=== PATIENT | male | born 1960 | race Caucasian/White ===

== ENCOUNTER 2024-09-16 09:11 | Outpatient (CLI) | payer BC, SELFPAY ==
--- NOTE | ~2024-09-16 | MR_ITS ---
MRI of the right shoulder Technique: Axial proton-density fat-sat images, coronal proton density fat-sat and T2 fat-sat images, and sagittal T1-weighted and T2 fat-sat images were acquired. Clinical History: Pain Findings: There is severe AC joint degenerative change with extensive bony productive change of the d istal clavicle and acromion. Coracoclavicular, coracoacromial, and coracohumeral ligaments are intact . There is 1.6 x 1.9 cm area of full-thickness tearing at the distal supraspinatus tendon insertion at the anterior mid portions. There is background moderate to advanced tendinosis of the supraspinatus t endon. There is mild to moderate infraspinatus tendinosis without definite partial or full-thickness tear. Subscapularis tendon is intact with mild tendinosis. Tendon of long head of the biceps is intac t. No labral tear evident. Inferior glenohumeral ligament is intact. There is mild chondromalacia of the glenohumeral joint. No muscle atrophy or edema. Impression: 1.6 x 1.9 cm full-thickness tear at the distal supraspinatus tendon insertion. Background rotator cuff tendinosis. Severe AC joint degenerative change. Reviewed, dictated and finalized at location . Impression: 1.6 x 1.9 cm full-thickness tear at the distal supraspinatus tendon insertion. Background rotator cuff tendinosis. Severe AC joint degenerative change.
== END 2024-09-16 09:12 | disposition home or self-care (01) ==
PROVIDERS: PCP Orthopaedic Surgery; Visit Provider Orthopaedic Surgery
DX: M75.81 Other shoulder lesions, right shoulder (principal); M19.011 Primary osteoarthritis, right shoulder
CPT/HCPCS: 73221

== ENCOUNTER 2024-10-06 01:24 | Day surgery (SDC) | payer BC, SELFPAY ==
[2024-09-22 14:39] VITALS: BMI 20.9
--- NOTE | 2024-09-22 14:55 | PC.NURSE ---
Report to the Outpatient Waiting Room, entrance under the green pavilion located off [facility], at time _0700am on date __10/06/24 . Planned Procedure Time: 0900am .? Time changes happen often and if your time is changed the preop area will call you the afternoon before. - You and your visitor will be asked to self-screen and do not enter if you have any COVID symptoms. Please call surgeon if you need to reschedule. - A mask is optional within the hospital at this time. Patients may have clear liquids (water, carbonated beverages, clear teas, apple juice) until 3 hours prior to surgery with a maximum of 20 ounces. - No food from midnight until time of surgery and no smoking, or chewing tobacco (or any form of nicotine). No chewing gum, candy or mints. (0600am) Take only the following medications with a SIP of water on the morning of surgery: ___Inhalers and Alprazolam if needed DO NOT STOP ANY OF YOUR OTHER PRESCRIPTION MEDICATIONS PRIOR TO SURGERY EXCEPT THE FOLLOWING Hold all vitamins and supplements for 3 days per anesthesiologist.Date to take last dose_ 10/02/24 Medications to discontinue per physician _HOLD Aspirin and Xarelto for [address] Grant Date to take last dose_09/30/24 Please no make-up, nail mosotho, hairspray, perfume, deodorant, or body powder the day of surgery.? No jewelry (including any body piercings) or valuables the day of surgery, leave them at home.? Please take a shower or bath the night before, or the morning of, surgery with an antibacterial soap.? Wear comfortable, loose fitting clothing.? - Jewelry must be removed prior to entering the operating room.? Rings and piercings that are not removed may be cut off. - The hospital will not accept responsibility for valuables.? - Please leave all valuables, including medications, at home the day of surgery. If you are going home after surgery, a licensed hammer driver must drive you home.? - NO public transportation without another adult if you receive anesthesia. - We recommend that an adult stay with you for 24 hours following discharge. - We also recommend that you do not drive, make important decision, drink alcoholic beverages, or take any drugs that were not prescribed by your health care provider for at least 24 hours after your discharge time. Follow any additional instructions given to you from your surgeon. Telephone instructions given to _Patient and asked if any additional questions and then verbalized understanding. Patient advised to call surgeon office or pre surgery nurse liaison [phone] if any additional questions.
--- NOTE | 2024-10-02 07:29 | P.HP_ITS ---
H&P: HPI History of Present Illness Date/Time: 10/02/24 07:29 Chief Complaint: Patient has shoulder pain right. He has weakness and difficulty raising his arm. He has failed conservative treatment like to consider surgical repair. Review of Systems Musculoskeletal: Musculoskeletal: Reports arthralgias, Reports joint swelling and Reports stiffness PMFSH Surgical History Surgical History History of neck surgery History of elbow surgery rt History of prostate surgery prostrate removed History of ankle surgery rt Family History Family History Mother Cerebrovascular accident Social History Social History Smoking status: Never smoker Alcohol intake: never Substance use: never Do You Feel Safe in your Home?: Yes Lack of Transportation: No Lack of Food: Never True Current Housing: I Have Housing Concerned About Future Housing: No Difficulty Paying Gas/Electric Bills: No Difficulty Paying for Meds: No Currently Unemployed: No Education: Trade/Vocational Certificate Difficulty w/ Childcare or Family Care: No Living arrangements: with family Additional living arrangements comments: Daughter Spiritual care concerns: No Meds Home Medications and Allergies Home Medications ?Medication ?Instructions ?Recorded ?Confirmed ?Type albuterol sulfate 90 mcg/actuation 1 puff inhalation Q4H PRN 07/22/24 09/22/24 History aerosol inhaler (Ventolin HFA) shortness of breath or wheezing alprazolam 0.5 mg tablet 0.5 mg PO DAILY 07/22/24 09/22/24 History aspirin 81 mg tablet,delayed 81 mg PO DAILY 07/22/24 09/22/24 History release atorvastatin 40 mg tablet (Lipitor) 40 mg PO DAILY 07/22/24 09/22/24 History budesonide 160 mcg-glycopyr 9 2 inh inhalation BID 07/22/24 09/22/24 History mcg-formot 4.8 mcg/actuation HFA inhaler (Breztri Aerosphere) empagliflozin 10 mg tablet 10 mg PO DAILY 07/22/24 09/22/24 History (Jardiance) ezetimibe 10 mg tablet 10 mg PO DAILY 07/22/24 09/22/24 History ferrous sulfate 325 mg (65 mg 325 mg PO DAILY 07/22/24 09/22/24 History iron) tablet levothyroxine 25 mcg capsule 25 mcg PO DAILY 07/22/24 09/22/24 History mecobalamin (vitamin B12) 1,000 1,000 mcg PO DAILY 07/22/24 09/22/24 History mcg lozenges montelukast 10 mg tablet 10 mg PO DAILY 07/22/24 09/22/24 History (Singulair) omeprazole 20 mg capsule,delayed 20 mg PO DAILY 07/22/24 09/22/24 History release rivaroxaban 2.5 mg tablet (Xarelto) 2.5 mg PO BID 07/22/24 09/22/24 History fluticasone propionate 50 1 spray intranasal DAILY 09/18/24 09/22/24 History mcg/actuation nasal spray,suspension (Allergy Relief (fluticasone)) Allergies Allergy/AdvReac Type Severity Reaction Status Date / Time No Known Allergies Allergy Verified 09/22/24 14:32 Exam Narrative: Patient has pain and impingement with right shoulder activity. He is weak in abduction external rotation is give-way. Neurologically is grossly intact. No significant radicular symptoms are noted. Neurologically appears to be intact. Eyes: General: appearance normal, both eyes and all related structures Neck: Neck: supple Cardio: Rate: regular rate Rhythm: regular rhythm Radiology Reports: Comments: Magnetic Resonance Report Signed Patient: Arslan Castellano MRI of the right shoulder Technique: Axial proton-density fat-sat images, coronal proton density fat-sat and T2 fat-sat images, and sagittal T1-weighted and T2 fat-sat images were acquired. Clinical History: Pain Findings: There is severe AC joint degenerative change with extensive bony productive change of the distal clavicle and acromion. Coracoclavicular, coracoacromial, and coracohumeral ligaments are intact. There is 1.6 x 1.9 cm area of full-thickness tearing at the distal supraspinatus tendon insertion at the anterior mid portions. There is background moderate to advanced tendinosis of the supraspinatus tendon. There is mild to moderate infraspinatus tendinosis without definite partial or full-thickness tear. Subscapularis tendon is intact with mild tendinosis. Tendon of long head of the biceps is intact. No labral tear evident. Inferior glenohumeral ligament is intact. There is mild chondromalacia of the glenohumeral joint. No muscle atrophy or edema. Impression: 1.6 x 1.9 cm full-thickness tear at the distal supraspinatus tendon insertion. Background rotator cuff tendinosis. Severe AC joint degenerative change. Reviewed, dictated and finalized at [facility]. Please be advised this is a medical document. It is intended for [id number] communication. It is written in medical language and may contain unfamiliar abbreviations or verbiage. Medical documents are intended to carry relevant information, facts as evident, and the clinical opinion of the practitioner at the [facility] Shoulder X-Ray 07/22/24 Shoulder MRI 09/16/24 Orthopedics Result Report 07/22/24 Assessment and Plan Assessment and plan (1) Rotator cuff tear, right: Code(s): M75.101 - Unspecified rotator cuff tear or rupture of right shoulder, not specified as traumatic Status: Acute Assessment and Plan: Patient has rotator cuff tear of the right shoulder. Also has degenerative arthritic changes of the AC joint. He has failed conservative treatment like to consider surgical intervention. I discussed this with him in detail will proceed with rotator cuff repair distal clavicle excision per his request. I discussed risks, benefits, limitations, and alternatives with the patient in detail. He understands and agrees would like to proceed. (2) Acromioclavicular arthrosis: Code(s): M19.019 - Primary osteoarthritis, unspecified shoulder Status: Acute
[2024-10-06] VITALS (8 sets, daily range): BP systolic 120–144; BP diastolic 66–81; PULSE 63–78; RESP 12–16; TEMP 36.1–36.4; O2SAT 95–100
--- OUTSIDE RECORDS SUMMARY | 2024-10-06 01:27 | XMS_ITS | Clinical Summary ---
Author Organization [facility] Address [address] [place] [address] Care Team Providers Care Retail Merchandiser Technician Name Role Phone Santi Shah MD Primary Care Provider [phone] Sabino Mullins MD Unavailable [phone] Allergies Active Allergy Reactions Criticality Noted Date Comments Lisinopril Dizziness Low 02/12/2015 Medications albuterol sulfate HFA 108 (90 Base) MCG/ACT inhaler Inhale 2 puffs into the lungs every 6 (six) hours as needed for Wheezing or Shortness of breath. Active ALPRAZolam (XANAX) 0.5 MG tablet Take 1 tablet (0.5 mg total) by mouth nightly as needed. Active atorvastatin (LIPITOR) 40 MG tablet Take 1 tablet (40 mg total) by mouth daily. Active SYMBICORT 160-4.5 MCG/ACT inhaler Inhale 2 puffs into the lungs 2 (two) times daily. Active Cyanocobalamin (B-12) 1000 MCG Cap Take 1 capsule by mouth daily. 3 Active JARDIANCE 10 MG tablet Take 1 tablet (10 mg total) by mouth daily. Active ezetimibe (ZETIA) 10 MG tablet Take 1 tablet (10 mg total) by mouth daily. Active FEROSUL 325 (65 Fe) MG tablet Take 1 tablet (325 mg total) by mouth daily. Active fluticasone propionate (FLONASE) 50 MCG/ACT nasal spray 2 sprays by Each Nostril route daily. 3 Active levothyroxine (SYNTHROID) 25 MCG tablet Take 1 tablet (25 mcg total) by mouth daily. Active montelukast (SINGULAIR) 10 MG tablet Take 1 tablet (10 mg total) by mouth daily. Active omeprazole (PRILOSEC) 20 MG capsule Take 1 capsule (20 mg total) by mouth daily. 3 Active senna-docusate (SENNA-PLUS) 8.6-50 MG tablet Take 1 tablet by mouth daily. 60 tablet 1 3 Active HYDROcodone-anabelle taminophen (NORCO) 5-325 MG tabletIndicatio ns:Acute Pain < 7 Day Supply,posto op Take 1-2 tablets by mouth every 6 (six) hours as needed. Indications: Acute Pain < 7 Day Supply, posto op 55 tablet 3 Active Active Problems Problem Noted Date Diagnosed Date Cervical myelopathy ([facility]) 11/13/2022 Family History Medical History Relation Comments Heart Disease Father Cancer Mother breast Relation Status Comments Father Mother Social History Tobacco Use Types Packs/Day Years Used Date Smoking Tobacco: Never Smokeless Tobacco: Never Tobacco Cessation:Counseling Given: Not Answered Alcohol Use Standard Drinks/Week Comments Not Currently 0 (1 standard drink = 0.6 oz pur e alcohol) Humiliation, Afraid, Rape, and Kick questionnair e Answer Date Recorded Within the last year, have y ou been afraid of your partner or ex-partner? No 11/13/2022 Within the last year, have y ou been humiliated or emotionally abused in other ways by your partner or ex-partner? No Within the last year, have y ou been kicked, hit, slapped, or otherwise physically hurt by your partner or ex-partner? No 11/13/2022 Within the last year, have y ou been raped or forced to have any kind of sexual activity by your partner or ex-partner? No 11/13/2022 Overall Financial Resource Strain (CARDIA) Answe r Date Recorded How hard is it for you to pa y for the very basics like food, housing, medical care, and heating? Not hard at all 11/13/2022 [facility] - Occupational Stress Questionnaire Answer Date Recorded Do you feel stress - tense, restless, nervous, or anxious, or unable to sleep at night because your mind is troubled all the time - these days? Not at all 11/13/2022 Exercise Vital Sign Answer Date Recorde d On average, how many days pe r week do you engage in moderate to strenuous exercise (like a brisk walk)? 0 days 11/13/2022 On average, how many minutes do you engage in exercise at this level? 0 min 11/13/2022 Hunger Vital Sign Answer Date Recorded Within the past 12 months, y ou worried that your food would run out before you got the money to buy more. Never true 11/14/19 23 Within the past 12 months, t he food you bought just didn't last and you didn't have money to get more. Never true 11/13/2022 PRAPARE - Transportation Answer Date Re corded In the past 12 months, has l ack of transportation kept you from medical appointments or from getting medications? No 10/30 In the past 12 months, has l ack of transportation kept you from meetings, work, or from getting things needed for daily living? No 11/13/2022 Housing Stability Vital Sign Answer Kendell e Recorded In the last 12 months, was t here a time when you were not able to pay the mortgage or rent on time? No 11/13/2022 In the last 12 months, how many places have you lived? 1 11/13/2022 In the last 12 months, was t here a time when you did not have a steady place to sleep or slept in a senior living (including now)? No 11/13/2022 Sex and Gender Information Value Date Recorded Sex Assigned at Not on file Legal Sex Male 7:41 PM CDT Gender Identity Not on file Sexual Orientation Not on file Last Filed Vital Signs Vital Sign Reading Time Taken Comments Blood Pressure 130/75 11/15/2022 4:06 AM CDT Pulse 82 11/15/2022 4:06 AM CDT Temperature 36.7 C (98.1 F) 11/15/2022 4:06 AM CDT Respiratory Rate 22 11/15/2022 4:06 AM CDT Oxygen Saturation 98% 11/15/2022 4:06 AM CDT Inhaled Oxygen Concentration - - Weight 65.4 kg (144 lb 2.9 oz) 11/13/2022 6:30 A M CDT Height 180.3 cm (5' 11 ) 11/13/2022 6:30 AM CDT Body Mass Index 20.11 11/13/2022 6:30 AM CDT Plan of Treatment Health Maintenance Due Date Last Done Comments Colorectal Cancer Screening Colonoscopy (10 Years) 1959 Hepatitis C 1977 DTaP, Tdap and Td Vaccines (1 - Tdap) 1978 Zoster Vaccines (1 of 2) 2009 COVID-19 Vaccine (6 - season) 2024 05/01/2022, 01/20/2022, 05/01/2021, Additional history exists Pneumococcal Vaccine: 65+ Years (1 of 1 - PCV) 2024 RSV Immunization or 60+ Years (1 - 1-dose 75+ series) 2034 Meningococcal B Vaccine Aged Out No l onger eligible based on patient's age to complete this topic Meningococcal Vaccine Aged Out No shaan bharat eligible based on patient's age to complete this topic Pneumococcal Vaccine: Pediatrics (0 to 5 Years) and At-Risk Patients (6 to 64 Years) Aged Out No longer eligible based on patient's age to complete this topic RSV Immunizations Under 20 Months Aged Out No longer eligible based on patient's age to complete this topic Goals Goal Patient Goal Type Associated Problems Recent Progress Patient-Stated? Author Family - family caregiver with be involved in care transitions and discharge planning Lifestyle No Law Ashraf, RN Medical Devices Implanted Type Area Vacuum Pan Operator Device Identifier Shelf Expiration Date Model / Serial / Lot Agent Hemostatic Thrombin Sterile Kit Matrix Surgiflo 8ml - [id number] Implanted:Qty: 1 on 11/13/2022 by Yvon Tirado MD at [facility] [employer] Sealant N/A: Spine Cervical [employer] 08/01/2023 2994 / / [id number] Agent Hemostatic Thrombin Sterile Kit Matrix Surgiflo 8ml - [id number] Implanted:Qty: 1 on 11/13/2022 by Yvon Tirado MD at [facility] [employer] Sealant N/A: Spine Cervical [employer] 05/31/2023 2994 / / [id number] 26-Setscrew Implanted:Qty: 12 on 11/13/2022 by Yvon Tirado MD at [facility] N/A: Spine Cervical Description:SURGALIGN Screw Implanted:Qty: 2 on 11/13/2022 by Yvon Tirado MD at [facility] N/A: Spine Cervical 26-PA-35- 28 / / Description:SURGALIGN Screw Implanted:Qty: 8 on 11/13/2022 by Yvon Tirado MD at [facility] N/A: Spine Cervical 26-PA-35- 14 / / Description:SURGALIGN Screw Implanted:Qty: 1 on 11/13/2022 by Yvon Tirado MD at [facility] N/A: Spine Cervical 26-PA-40- 28 / / Description:SURGALIGN Screw Implanted:Qty: 1 on 11/13/2022 by Yvon Tirado MD at [facility] N/A: Spine Cervical 26-PA-40- 30 / / Description:SURGALIGN Karolina Implanted:Qty: 2 on 11/13/2022 by Yvon Tirado MD at [facility] N/A: Spine Cervical 26-CC-PB- KAROLINA-100 / / Description:SURGALIGN Insurance [facility] Advance Directives * Full Code (Latest Code Status on File) Date Activated Date Inactivated Comments 11/13/2022 1:06 PM 11/15/2022 1:21 PM Care Teams Retail Merchandiser Technician Relationship Specialty Start Date End Date Santi Shah MD [address] [facility] [address] [place] [address] PCP - General INTERNAL MEDICINE 11/02/22 Sabino Mullins MD [address] [place] [address] INTERVENTIONAL CARDIOLOGY 11/02/22
--- OUTSIDE RECORDS SUMMARY | 2024-10-06 01:27 | XMS_ITS | Data Portability ---
Author Organization [facility] Address [address] [place] [address] [place] [address] Care Team Providers Care Surveillance Officer Name Role Phone ISRAEL SHAH Primary Care Provider [phone] Assessment Encounter Date Assessment Date Assessment LastModified by Organization Details LastModified Time 11/06/2023 11/06/2023 Exam is unremarkable we will obtain some blood work he took the last 2 days off we will cover him for that to go back to work tomorrow I told him to maybe get a hold of the [employer] to help with symptoms strategies for his mother I 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 That is his preference. We will follow up with me in 3-4 months' time we will do blood work then [email or web address] Not available 03/24/2024 21:43:12 06/03/2024 06/03/2024 hydrocortisone just to the opening of the external auditory meatus once a day for week Amoxil 500 t.i.d. 1 week [email or web address] Not available 06/03/2024 21:24:41 06/23/2024 06/23/2024 continue current therapy and follow up in 4 months obtain his colonoscopy report obtain results of Cardiology blood work [email or web address] Not available 06/23/2024 22:13:56 08/26/2024 08/26/2024 EKG sinus rhythm inferior MT old .right bundle branch block For his musculoskeletal pain left chest wall he can use Tylenol 1-2 regular strength b.i.d. for about a week blood work has been ordered for his chronic medical problem management chronic medical problems have been discussed return to clinic 4 months' work note for yesterday and today because of his musculoskeletal chest wall pain [email or web address] Not available 08/26/2024 17:49:49 Plan of Treatment Reminders Order Date Submit Date Provider Last Modified By Organization Details Last Modified Time Details Appointments ANY 15 2024 03:15P Bobby Shah MD Not available Not available Not available Lab lipid panel, serum 2024 025 [facility], [address] [place], [address], 09/11/2024 02:23:00 CMP, serum or plasma 2024 025 [facility], [address] [place], [address], 09/11/2024 02:23:00 CBC w/ auto diff 2024 025 [facility], [address] [place], [address], 09/11/2024 02:23:00 T4, free, serum 2024 025 [facility], [address] [place], [address], 09/11/2024 02:22:59 T3, free, serum or plasma [facility] [address] [place], [address], 10/02/2024 10:58:41 TSH, ultra-sen sitive, serum 2024 025 [facility], [address] [place], [address], 09/11/2024 02:23:00 PSA, total, serum or plasma 2023 024 [facility], [address], [place], [address], 12/04/2023 09:18:31 vitamin B12 + folate, serum or blood 2023 024 [facility] [address], [place], [address], 12/04/2023 09:18:27 iron + total iron-bind ing capacity (TIBC), serum 2023 024 [facility] [address], [place], [address], 12/04/2023 09:18:28 ferritin, serum or plasma 2023 024 [facility] [address], [place], [address], 12/04/2023 09:18:29 CBC w/ auto diff 2023 024 [facility] [address], [place], [address], 12/04/2023 09:18:30 CMP, serum or plasma 2023 024 [facility] [address], [place], [address], 12/04/2023 09:18:26 TSH, ultra-sen sitive, serum 2023 024 [facility] [address], [place], [address], 12/04/2023 09:18:28 T3, free, serum or plasma 2023 024 [facility] [address], [place], [address], 12/04/2023 09:18:32 T4, free, serum 2023 [place] [facility], [address], [place], [address], 12/04/2023 09:18:32 Referral None recorded. Procedures None recorded. Surgeries None recorded. Imaging None recorded. Medication Orders amoxicill in 500 mg tablet 2023 [place] [facility] [id number], [address], [place], [id number], 06/23/2024 16:39:37 albuterol sulfate HFA 90 mcg/actua tion aerosol inhaler 2023 024 [email or web address] [facility] #[id number], [address], [place], [id number], 03/24/2024 17:39:41 Patient TargetsNo targets recorded. Patient Instructions Encounter Date Encounter Id Patient Instructions Last Modified By Organization Details Last Modified Time 08/26/2024 [id number] A healthy lifestyle: care instructions [email or web address] Not available 08/26/2024 16:57:53 Reason for Referral None Reported. Results Created Date Observation Date Name Description Value Unit Range Abnormal Flag Note LastModifiedBy Organization Detail LastModifiedTime 12/03/1912/04/2023 COMP. METAB OLIC PANEL (14) glucose 91 mg/dL 70-99 Not Available [facility] ([facility]) [address] [place], [address], 12/04/2023 09:18:26 12/03/1912/04/2023 COMP. METAB OLIC PANEL (14) BUN 19 mg/dL 8-27 Not Available [facility] ([facility]) [address] [place], [address], 12/04/2023 09:18:26 12/03/19 24 12/04/2023 COMP. METAB OLIC PANEL (14) creatinine 0.83 mg/dL 0.76-1 .27 Not Available [facility] ([facility]) [address] [facility], [place], [address], 12/04/2023 09:18:26 12/03/19 24 12/04/2023 COMP. METAB OLIC PANEL (14) eGFR 98 mL/mi n/1.7 3 >59 Not Available [facility] ([facility]) [address] [facility] [place], [address], 12/04/2023 09:18:26 12/03/19 24 12/04/2023 COMP. METAB OLIC PANEL (14) BUN/creatini ne ratio 23 10-24 Not Available [facility] ([facility]) [address] [facility], [place], [address], 12/04/2023 09:18:26 12/03/19 24 12/04/2023 COMP. METAB OLIC PANEL (14) sodium 140 mmol/ L 134-14 4 Not Available [facility] ([facility]) [address] [facility] [place], [address], 12/04/2023 09:18:26 12/03/19 24 12/04/2023 COMP. METAB OLIC PANEL (14) potassium 4.6 mmol/ L 3.5-5. 2 Not Available [facility] ([facility]) [address] [place], [address], 12/04/2023 09:18:26 12/03/19 24 12/04/2023 COMP. METAB OLIC PANEL (14) chloride 106 mmol/ L 96-106 Not Available [facility] ([facility]) [address] [facility] [place], [address], 12/04/2023 09:18:26 12/03/19 24 12/04/2023 COMP. METAB OLIC PANEL (14) carbon dioxide, total 20 mmol/ L 20-29 Not Available [facility] ([facility]) [address] [place], [address], 12/04/2023 09:18:26 12/03/19 24 12/04/2023 COMP. METAB OLIC PANEL (14) calcium 9.2 mg/dL 8.6-10 .2 Not Available [facility] ([facility]) [address] [place], [address], 12/04/2023 09:18:26 12/03/19 24 12/04/2023 COMP. METAB OLIC PANEL (14) protein, total 6.7 g/dL 6.0-8. 5 Not Available [facility] ([facility]) [address] [place], [address], 12/04/2023 09:18:26 12/03/19 24 12/04/2023 COMP. METAB OLIC PANEL (14) albumin 4.3 g/dL 3.9-4. 9 Not Available [facility] ([facility]) [address] [place], [address], 12/04/2023 09:18:26 12/03/19 24 12/04/2023 COMP. METAB OLIC PANEL (14) globulin, total 2.4 g/dL 1.5-4. 5 Not Available [facility] ([facility] [address] [facility] [place], [address], 12/04/2023 09:18:26 12/03/19 24 12/04/2023 COMP. METAB OLIC PANEL (14) A/G ratio 1.8 1.2-2. 2 Not Available [facility] ([facility] [address] [place], [address], 12/04/2023 09:18:26 12/03/19 24 12/04/2023 COMP. METAB OLIC PANEL (14) bilirubin, total 0.5 mg/dL 0.0-1. 2 Not Available [facility] ([facility]) [address] [facility] [place], [address], 12/04/2023 09:18:26 12/03/19 24 12/04/2023 COMP. METAB OLIC PANEL (14) alkaline phosphatase 87 IU/L 44-121 Not Available [facility] ([facility]) [address] [place], [address], 12/04/2023 09:18:26 12/03/19 24 12/04/2023 COMP. METAB OLIC PANEL (14) AST (SGOT) 30 IU/L 0-40 Not Available [facility] ([facility]) [address] [facility] [place], [address], 12/04/2023 09:18:26 12/03/19 24 12/04/2023 COMP. METAB OLIC PANEL (14) ALT (SGPT) 28 IU/L 0-44 Not Available [facility] ([facility]) [address] [facility], [place], [address], 12/04/2023 09:18:26 12/03/19 24 12/04/2023 VITAM IN B12 AND FOLAT E vitamin B12 1792 pg/mL 232-12 45 above high normal Not Available [facility] ([facility]) [address] [facility] [place], [address], 12/04/2023 09:18:27 12/03/19 24 12/04/2023 VITAM IN B12 AND FOLAT E folate (folic acid), serum 4.8 NG/mL >3.0 A serum folat e daksha ntrat ion of less than 3.1 ng/mL is consi dered to repre sent clini viet defic iency . Not Available [facility] ([facility]) [address] [facility] [place], [address], 12/04/2023 09:18:27 12/03/19 24 12/04/2023 IRON AND TIBC iron bind.cap.(TI BC) 361 ug/dL 250-45 0 Not Available [facility] ([facility]) [address] [place], [address], 12/04/2023 09:18:28 12/03/19 24 12/04/2023 IRON AND TIBC UIBC 260 ug/dL 111-34 3 Not Available [facility] ([facility]) [address] [place], [address], 12/04/2023 09:18:28 12/03/19 24 12/04/2023 IRON AND TIBC iron 101 ug/dL 38-169 Not Available [facility] ([facility]) [address] [place], [address], 12/04/2023 09:18:28 12/03/19 24 12/04/2023 IRON AND TIBC iron saturation 28 % 15-55 Not Available [facility] ([facility]) [address] [place], [address], 12/04/2023 09:18:28 12/03/19 24 12/04/2023 TSH TSH 1.930 uIU/m L 0.450- 4.500 Not Available [facility] ([facility]) [address] [place], [address], 12/04/2023 09:18:28 12/03/19 24 12/04/2023 LEIGH TIN ferritin 56 NG/mL 30-400 Not Available [facility] ([facility]) [address] [place], [address], 12/04/2023 09:18:29 12/03/19 24 12/04/2023 CBC WITH DIFFE RENTI AL/PL ATELE T WBC 4.8 x10e3 /uL 3.4-10 .8 Not Available [facility] ([facility]) [address] [place], [address], 12/04/2023 09:18:30 12/03/19 24 12/04/2023 CBC WITH DIFFE RENTI AL/PL ATELE T RBC 5.16 x10e6 /uL 4.14-5 .80 Not Available [facility] ([facility]) [address] [place], [address], 12/04/2023 09:18:30 12/03/19 24 12/04/2023 CBC WITH DIFFE RENTI AL/PL ATELE T hemoglobin 16.5 g/dL 13.0-1 7.7 Not Available [facility] ([facility]) [address] [place], [address], 12/04/2023 09:18:30 12/03/1912/04/2023 CBC WITH DIFFE RENTI AL/PL ATELE T hematocrit 51.1 % 37.5-5 1.0 above high normal Not Available [facility] ([facility]) [address] [place], [address], 12/04/2023 09:18:30 12/03/19 24 12/04/2023 CBC WITH DIFFE RENTI AL/PL ATELE T MCV 99 fL 79-97 above high normal Not Available [facility] ([facility]) [address] [place], [address], 12/04/2023 09:18:30 12/03/19 24 12/04/2023 CBC WITH DIFFE RENTI AL/PL ATELE T MCH 32.0 pg 26.6-3 3.0 Not Available [facility] ([facility]) [address] [place], [address], 12/04/2023 09:18:30 12/03/19 24 12/04/2023 CBC WITH DIFFE RENTI AL/PL ATELE T MCHC 32.3 g/dL 31.5-3 5.7 Not Available [facility] ([facility]) [address] [place], [address], 12/04/2023 09:18:30 12/03/19 24 12/04/2023 CBC WITH DIFFE RENTI AL/PL ATELE T RDW 11.9 % 11.6-1 5.4 Not Available [facility] ([facility]) [address] [facility], [place], [address], 12/04/2023 09:18:30 12/03/19 24 12/04/2023 CBC WITH DIFFE RENTI AL/PL ATELE T platelets 309 x10e3 /uL 150-45 0 Not Available [facility] ([facility]) [address] [facility], [place], [address], 12/04/2023 09:18:30 12/03/19 24 12/04/2023 CBC WITH DIFFE RENTI AL/PL ATELE T neutrophils 47 % notest ab. Not Available [facility] ([facility]) [address] [facility], [place], [address], 12/04/2023 09:18:30 12/03/19 24 12/04/2023 CBC WITH DIFFE RENTI AL/PL ATELE T lymphs 32 % notest ab. Not Available [facility] ([facility]) [address] [facility], [place], [address], 12/04/2023 09:18:30 12/03/19 24 12/04/2023 CBC WITH DIFFE RENTI AL/PL ATELE T monocytes 11 % notest ab. Not Available [facility] ([facility]) [address] [facility], [place], [address], 12/04/2023 09:18:30 12/03/19 24 12/04/2023 CBC WITH DIFFE RENTI AL/PL ATELE T eos 9 % notest ab. Not Available [facility] ([facility]) [address] [facility], [place], [address], 12/04/2023 09:18:30 12/03/19 24 12/04/2023 CBC WITH DIFFE RENTI AL/PL ATELE T basos 1 % notest ab. Not Available [facility] ([facility]) [address] [facility], [place], [address], 12/04/2023 09:18:30 12/03/19 24 12/04/2023 CBC WITH DIFFE RENTI AL/PL ATELE T neutrophils (absolute) 2.3 x10e3 /uL 1.4-7. 0 Not Available [facility] ([facility]) [address] [facility], [place], [address], 12/04/2023 09:18:30 12/03/19 24 12/04/2023 CBC WITH DIFFE RENTI AL/PL ATELE T lymphs (absolute) 1.6 x10e3 /uL 0.7-3. 1 Not Available [facility] ([facility]) [address] [facility], [place], [address], 12/04/2023 09:18:30 12/03/19 24 12/04/2023 CBC WITH DIFFE RENTI AL/PL ATELE T monocytes(ab solute) 0.5 x10e3 /uL 0.1-0. 9 Not Available [facility] ([facility]) [address] [facility], [place], [address], 12/04/2023 09:18:30 12/03/19 24 12/04/2023 CBC WITH DIFFE RENTI AL/PL ATELE T eos (absolute) 0.4 x10e3 /uL 0.0-0. 4 Not Available [facility] ([facility]) [address] [facility], [place], [address], 12/04/2023 09:18:30 12/03/19 24 12/04/2023 CBC WITH DIFFE RENTI AL/PL ATELE T baso (absolute) 0.1 x10e3 /uL 0.0-0. 2 Not Available [facility] ([facility]) [address] [place], [address], 12/04/2023 09:18:30 06/03/12/04/2023 CBC WITH DIFFE RENTI AL/PL ATELE T immature granulocytes 0 % notest ab. Not Available [facility] ([facility]) [address] [facility], [place], [address], 12/04/2023 09:18:30 12/03/19 24 12/04/2023 CBC WITH DIFFE RENTI AL/PL ATELE T immature grans (abs) 0.0 x10e3 /uL 0.0-0. 1 Not Available [facility] ([facility]) [address] [facility], [place], [address], 12/04/2023 09:18:30 12/03/1912/04/2023 PROST ATE-S PECIF IC AG prostate specific Ag <0.1 NG/mL 0.0-4. 0 Sreekanth ified by repea t destiney sis Leticia ECLIA metho dolog y. Accor ding to the Ameri can Urolo gical Assoc iatio n, Serum PSA shoul d decre ase and remai n at undet ectab le level s after radic al prost atect tristen. The AUA defin es bioch emica l recur rence as an initi al PSA value 0.2 ng/mL or great er follo wed by a subse quent confi rmato ry PSA value 0.2 ng/mL or great er. Value s obtai jose with diffe rent assay metho ds or kits canno t be used inter reyes eaaarony . Resul ts canno t be inter prete d as absol karie evide nce of the prese nce or absen ce of carmencita mills se. Not Available [facility] ([facility]) [address] [facility], [place], [address], 12/04/2023 09:18:31 12/03/1912/04/2023 TRIIO DOTHY SHAHZAD E (T3), FREE triiodothyro nine (T3), free 3.2 pg/mL 2.0-4. 4 Not Available [facility] ([facility]) [address] [facility], [place], [address], 12/04/2023 09:18:32 12/03/19 24 12/04/2023 T4,FR EE(DI RECT) T4,free(dire ct) 1.22 NG/dL 0.82-1 .77 Not Available [facility] ([facility]) [address] [facility], [place], [address], 12/04/2023 09:18:32 09/11/19 25 09/10/2024 Thyro tropi n [Unit s/vol ume] in Serum or Plasm a by Detec tion limit <= 0.005 mIU/L thyrotropin [units/volum e] in serum or plasma by detection limit <= 0.005 mIU/L 1.1 uIU/m L low: 0.465u IU/mLh igh: 4.68uI U/mL normal Not Available Not Available 09/18/2024 06:42:04 09/11/19 25 09/10/2024 Triio dothy shahzad e (T3) Free [Mass /volu me] in Serum or Plasm a triiodothyro nine (T3) free [mass/volume ] in serum or plasma 4 pg/mL low: 2.77pg /mLhig h: 5.27pg /mL normal Not Available Not Available 09/18/2024 06:42:04 09/11/19 25 09/10/2024 Thyro xine (T4) free [Mass /volu me] in Serum or Plasm a thyroxine (T4) free [mass/volume ] in serum or plasma 1.03 NG/dL low: 0.78NG /dLhig h: 2.19NG /dL normal Not Available Not Available 09/18/2024 06:42:04 09/11/19 25 09/10/2024 Compr ehens joaquina metab olic 1999 panel - Serum or Plasm a sodium [moles/volum e] in blood 138 mmol/ L low: 137mmo l/Lhig h: 145mmo l/L normal Not Available Not Available 09/18/2024 06:42:04 09/11/19 25 09/10/2024 Compr ehens joaquina metab olic 1999 panel - Serum or Plasm a potassium [moles/volum e] in serum or plasma 4.2 mmol/ L low: 3.5mmo l/Lhig h: 5.1mmo l/L normal Not Available Not Available 09/18/2024 06:42:04 09/11/19 25 09/10/2024 [facility] jo[place] [employer] ol 1999 panel - Serum or Plasm a chloride [moles/volum e] in serum or plasma 114 mmol/ L low: 98mmol /Lhigh : 107mmo l/L high Not Available Not Available 09/18/2024 06:42:04 09/11/19 25 09/10/2024 [facility] ehens [place] [employer] olic 1999 panel - Serum or Plasm a carbon dioxide, total [moles/volum e] in serum or plasma 22 mmol/ L low: 22mmol /Lhigh : 30mmol /L normal Not Available Not Available 09/18/2024 06:42:04 09/11/19 25 09/10/2024 Compr api[facility] [place] [employer] ic 1999 panel - Serum or Plasm a anion gap in serum or plasma 6.2 mmol/ L low: 14mmol /Lhigh : 22mmol /L low Not Available Not Available 09/18/2024 06:42:04 09/11/19 25 09/10/2024 [facility] [place] [employer] olic 1999 panel - Serum or Plasm a glucose [mass/volume ] in serum or plasma 98 mg/dL low: 70mg/d Lhigh: 99mg/d L normal Not Available Not Available 09/18/2024 06:42:04 09/11/19 25 09/10/2024 [facility] [place] [employer] olic 1999 panel - Serum or Plasm a urea nitrogen [mass or moles/volume ] in serum or plasma 22 mg/dL low: 8mg/dL high: 19mg/d L high Not Available Not Available 09/18/2024 06:42:04 09/11/19 25 09/10/2024 [facility] api[facility]mat [place] [employer] olic 1999 panel - Serum or Plasm a creatinine [mass/volume ] in serum or plasma 0.97 mg/dL low: 0.66mg /dLhig h: 1.25mg /dL normal Not Available Not Available 09/18/2024 06:42:04 03/12/09/10/2024 [facility] api[facility]mat jo[place] [employer] [facility] 1999 panel - Serum or Plasm a glomerular filtration rate/1.73 sq M.predicted [volume rate/area] in serum, plasma or blood >60 normal Not Available Not Available 08/31 06:42:04 09/11/19 25 09/10/2024 [facility] [employer] [place] [employer] [facility] 1999 panel - Serum or Plasm a alkaline phosphatase [enzymatic activity/vol ume] in serum or plasma 65 U/L low: 38U/Lh igh: 126U/L normal Not Available Not Available 09/18/2024 06:42:04 09/11/19 25 09/10/2024 [facility] [employer] [place] [employer] [facility] 1999 panel - Serum or Plasm a alanine aminotransfe rase [enzymatic activity/vol ume] in serum or plasma 28 U/L low: 0U/Lhi gh: 50U/L normal Not Available Not Available 09/18/2024 06:42:04 09/11/19 25 09/10/2024 [facility] [employer] [place] [employer] [facility] 1999 panel - Serum or Plasm a aspartate aminotransfe rase [enzymatic activity/vol ume] in serum or plasma 38 U/L low: 15U/Lh igh: 46U/L normal Not Available Not Available 09/18/2024 06:42:04 09/11/19 25 09/10/2024 [facility] [employer] [place] [employer] [facility] 1999 panel - Serum or Plasm a bilirubin.to maritza [mass/volume ] in serum or plasma 0.4 mg/dL low: 0.2mg/ dLhigh : 1.3mg/ dL normal Not Available Not Available 09/18/2024 06:42:04 09/11/19 25 09/10/2024 [facility] [place] [employer] [facility] 1999 panel - Serum or Plasm a calcium [mass/volume ] in serum or plasma 9.4 mg/dL low: 8.4mg/ dLhigh : 10.2mg /dL normal Not Available Not Available 09/18/2024 06:42:04 09/11/19 25 09/10/2024 [facility] [employer] [place] [employer] [facility] 1999 panel - Serum or Plasm a protein [mass/volume ] in serum or plasma 7.4 g/dL low: 6.3g/d Lhigh: 8.2g/d L normal Not Available Not Available 09/18/2024 06:42:04 09/11/19 25 09/10/2024 Compr ehens joaquina metab ol 1999 panel - Serum or Plasm a albumin [mass/volume ] in serum or plasma 4.6 g/dL low: 3g/dLh igh: 4.4g/d L high Not Available Not Available 09/18/2024 06:42:04 09/11/19 25 09/10/2024 Compr ehens joaquina metab olic 1999 panel - Serum or Plasm a globulin [mass/volume ] in serum 2.8 g/dL low: 2.6g/d Lhigh: 4.2g/d L normal Not Available Not Available 09/18/2024 06:42:04 09/11/19 25 09/10/2024 Compr ehens joaquina metab ic 1999 panel - Serum or Plasm a albumin/glob ulin [mass ratio] in serum or plasma 1.6 ratio low: 1ratio high: 2ratio normal Not Available Not Available 09/18/2024 06:42:04 09/11/19 25 09/10/2024 [facility] 1996 panel - Serum or Plasm a cholesterol [mass/volume ] in serum or plasma 106 mg/dL low: 140mg/ dLhigh : 199mg/ dL low Not Available Not Available 09/18/2024 06:42:04 09/11/19 25 09/10/2024 [facility] 1996 panel - Serum or Plasm a triglyceride [mass/volume ] in serum or plasma 50 mg/dL low: 0mg/dL high: 150mg/ dL normal Not Available Not Available 09/18/2024 06:42:04 09/11/19 25 09/10/2024 [facility] 1995 panel - Serum or Plasm a cholesterol in HDL [mass or moles/volume ] in serum or plasma 65 mg/dL low: 40mg/d L normal Not Available Not Available 09/18/2024 06:42:04 09/11/19 25 09/10/2024 Lip[facility] 1995 panel - Serum or Plasm a cholesterol in LDL [mass/volume ] in serum or plasma 31 mg/dL low: 0mg/dL high: 130mg/ dL normal Not Available Not Available 09/18/2024 06:42:04 09/11/19 25 09/10/2024 CBC W Auto Diffe renti al panel - Blood leukocytes [#/volume] in blood by automated count 5.6 x10'3 /uL low: 4.2x10 '3/uLh igh: 10.8x1 0'3/uL normal Not Available Not Available 09/18/2024 06:42:04 09/11/19 25 09/10/2024 CBC W Auto Diffe alison wright panel - Blood erythrocytes [#/volume] in blood by automated count 4.75 x10'6 /uL low: 4.1x10 '6/uLh igh: 5.8x10 '6/uL normal Not Available Not Available 09/18/2024 06:42:04 09/11/19 25 09/10/2024 CBC W Auto Diffe alison wright panel - Blood hemoglobin [mass/volume ] in blood 15.8 g/dL low: 13.2g/ dLhigh : 17g/dL normal Not Available Not Available 09/18/2024 06:42:04 09/11/19 25 09/10/2024 CBC W Auto Diffe alison wright panel - Blood hematocrit [volume fraction] of blood by automated count 46.9 % low: 39.3%h igh: 50% normal Not Available Not Available 09/18/2024 06:42:04 09/11/19 25 09/10/2024 CBC W Auto Diffesperanza wright panel - Blood MCV [entitic volume] by automated count 98.7 fL low: 80fLhi gh: 97fL high Not Available Not Available 09/18/2024 06:42:04 09/11/19 25 09/10/2024 CBC W Auto Diffesperanza wright panel - Blood MCH [entitic mass] by automated count 33.3 pg low: 27pghi gh: 33pg high Not Available Not Available 09/18/2024 06:42:04 09/11/19 25 09/10/2024 CBC W Auto Diffe alison wright panel - Blood MCHC [mass/volume ] by automated count 33.7 g/dL low: 31g/dL high: 36g/dL normal Not Available Not Available 09/18/2024 06:42:04 09/11/19 25 09/10/2024 CBC W Auto Diffesperanza wright panel - Blood erythrocyte distribution width [ratio] 14.4 % low: 11.8%h igh: 15.5% normal Not Available Not Available 09/18/2024 06:42:04 09/11/19 25 09/10/2024 CBC W Auto Diffe renti al panel - Blood platelets [#/volume] in blood by automated count 333 x10'3 /uL low: 150x10 '3/uLh igh: 400x10 '3/uL normal Not Available Not Available 09/18/2024 06:42:04 09/11/19 25 09/10/2024 CBC W Auto Diffe renti al panel - Blood platelet mean volume [entitic volume] in blood by automated count 8.8 fL low: 9fLhig h: 12.4fL low Not Available Not Available 09/18/2024 06:42:04 09/11/19 25 09/10/2024 CBC W Auto Diffe renti al panel - Blood neutrophils/ 100 leukocytes in blood 50.9 % low: 39%hig h: 72% normal Not Available Not Available 09/18/2024 06:42:04 09/11/19 25 09/10/2024 CBC W Auto Diffe renti al panel - Blood lymphocytes/ 100 leukocytes in blood 30.7 % low: 16%hig h: 47% normal Not Available Not Available 09/18/2024 06:42:04 09/11/19 25 09/10/2024 CBC W Auto Diffe renti al panel - Blood monocytes/10 0 leukocytes in blood 12.2 % low: 5%high : 12% high Not Available Not Available 09/18/2024 06:42:04 09/11/19 25 09/10/2024 CBC W Auto Diffe renti al panel - Blood eosinophils [#/volume] in blood 4.6 % low: 1%high : 7% normal Not Available Not Available 09/18/2024 06:42:04 09/11/19 25 09/10/2024 CBC W Auto Diffe renti al panel - Blood basophils/10 0 leukocytes in blood 1.2 % low: 0%high : 2% normal Not Available Not Available 09/18/2024 06:42:04 09/11/19 25 09/10/2024 CBC W Auto Diffe renti al panel - Blood immature granulocytes /100 leukocytes in blood 0.4 % low: 0%high : 0.5% normal Not Available Not Available 09/18/2024 06:42:04 09/11/19 25 09/10/2024 CBC W Auto Diffe renti al panel - Blood neutrophils [#/volume] in blood 2.87 x10'3 /uL low: 1.5x10 '3/uLh igh: 8x10'3 /uL normal Not Available Not Available 09/18/2024 06:42:04 09/11/19 25 09/10/2024 CBC W Auto Diffe renti al panel - Blood lymphocytes [#/volume] in blood 1.73 x10'3 /uL low: 1.07x1 0'3/uL high: 3.43x1 0'3/uL normal Not Available Not Available 09/18/2024 06:42:04 09/11/19 25 09/10/2024 CBC W Auto Diffe renti al panel - Blood monocytes [#/volume] in blood 0.69 x10'3 /uL low: 0.29x1 0'3/uL high: 0.99x1 0'3/uL normal Not Available Not Available 09/18/2024 06:42:04 09/11/19 25 09/10/2024 CBC W Auto Diffe renti al panel - Blood eosinophils [#/volume] in blood 0.26 x10'3 /uL low: 0.02x1 0'3/uL high: 0.53x1 0'3/uL normal Not Available Not Available 09/18/2024 06:42:04 09/11/19 25 09/10/2024 CBC W Auto Diffe renti al panel - Blood basophils [#/volume] in blood 0.07 x10'3 /uL low: 0.01x1 0'3/uL high: 0.08x1 0'3/uL normal Not Available Not Available 09/18/2024 06:42:04 09/11/19 25 09/10/2024 CBC W Auto Diffe renti al panel - Blood immature granulocytes [#/volume] in blood 0.02 x10'3 /uL low: 0x10'3 /uLhig h: 0.05x1 0'3/uL normal Not Available Not Available 09/18/2024 06:42:04 09/11/19 25 09/10/2024 CBC W Auto Diffe renti al panel - Blood nucleated erythrocytes /100 leukocytes [ratio] in blood 0 % high: 0% normal Not Available Not Available 09/18/2024 06:42:04 09/11/1909/10/2024 CBC W Auto Diffe renti al panel - Blood nucleated erythrocytes [#/volume] in blood by automated count 0 x10'3 /uL normal Not Available Not Available 09/19/19 06:42:04 08/26/1905/01/2018 colon oscop y proce dure (PROC ) No observ ation record ed. [email or web address] Modesto Ann MD [address] [facility] [address], [place], [address], 08/26/2024 15:50:35 08/26/1908/26/2024 elect amber nelsongr am No observ ation record ed. BARCODE Not Available 2024 17:56:40 Result Notes None recorded. Problems Name Problem SNOMED Code Status Onset Date Resolution Date Notes Provider Name and Address Organization Details Recorded Time Asthma 378664686 Active 2023 Israel Shah MD Attn: Brianne mancia,[address] [place], [address], [place] - [facility] 4 21:23:16 Coronary atherosclerosi s 908093654 Active 2023 Israel Shah MD Attn: Brianne mancia,[address] [place], [address], [place] [facility] 4 21:23:17 Hypothyroidism 74671735 Active 2023 Israel Shah MD Attn: Brianne mancia,[address] [facility], [place], [address], [place] [facility] 4 21:23:21 Gastroesophage al reflux disease without esophagitis 269601577 Active 2023 Israel Shah MD Attn: Brianne mancia,[address] [facility], [place], [address], [place] [facility] 4 21:23:22 Cervical spondylosis 434522725 Active 2023 Israel Shah MD Attn: Brianne mancia,[address], [place], [address], [place] [facility] 4 21:23:23 Hyperlipidemia 77645019 Active 2023 Israel Shah MD Attn: Brianne mancia,[address], [place], [address], [place] - [facility] 4 21:23:24 History of malignant neoplasm of prostate 257328272 Active 2023 Israel Shah MD Attn: Brianne mancia,[address], [place], [address], [place] - [facility] 4 21:23:28 Problem Notes None recorded. Procedures Surgical History Date Name Laterality Status Provider Name and Address Organization Details Recorded Time 10/31/19 23 surgical repair of head and neck structure completed Denise Campbell MA [facility] 09/11/2023 16:46:16 10/31/19 22 cardiopulmonary bypass operation completed Denise Campbell MA [facility] 09/11/2023 16:45:43 10/31/19 21 Extensive prostate surgery completed Denise Campbell MA [facility] 09/11/2023 16:47:06 07/02/19 19 Prostatectomy completed Denise Campbell MA [facility] 09/11/2023 16:46:38 procedure on ankle completed Denise Campbell [place] [facility] 09/11/2023 16:47:21 Tonsillectomy completed Denise Campbell MA [facility] 09/11/2023 16:47:33 Imaging Results Imaging Date Name Status LastModified by Organization Details LastModified Time 05/01/2018 [facility] (PROC[facility] Modesto Ann MD [address] [facility] [address], [place], [address], 08/26/2024 15:50:35 08/26/2024 electrocardiogram completed BARCODE Informa tion not available 08/26/2024 17:56:40 Procedure Notes None recorded. Medical Equipment None Reported. Allergies Allergen ID Allergen Name Allergen Category Reaction Reaction Severity Criticality Documentation Date Start Date Code Code System Note Provider Name and Address Organization Details Recorded Time 973817 lisinopri l medicatio n dizziness Not available low 08/26/20242014 35500 RxNorm Not Available Not Available Not Available Medications Name Sig Start Date Stop Date Status Note LastModified by Organization Details LastModified Time b-12 1000 mcg caps active Not Available Not Available Not Available binaxnow covid-19 ag card home test kit 09/10 completed Not Available Not Available Not Available cyclobenzap rine 10 mg tablet TAKE 1 TABLET BY MOUTH AT NIGHT NEEDED 06/03 completed Not Available Not Available Not Available atorvastati n 40 mg tablet TAKE 1 TABLET BY MOUTH EVERY DAY active Not Available Not Available No t Available prednisone 10 mg tablet TAKE 1 TABLET BY MOUTH TWICE DAILY FOR 10 DAYS 08/26 completed Not Available Not Available Not Available doxycycline hyclate 100 mg capsule TAKE 1 CAPSULE BY MOUTH TWICE DAILY FOR 7 DAYS 09/10 completed Not Available Not Available Not Available carvedilol 12.5 mg tablet TAKE 1 TABLET BY MOUTH TWICE DAILY 09/10 completed Not Available Not Available Not Available azithromyci n 250 mg tablet 09/10 completed Not Available Not Available Not Available hydrocodone 5 mg-acetamin ophen 325 mg tablet TAKE 1 -2 TABLETS BY MOUTH EVERY 6 HOURS NEEDED 09/10 completed Not Available Not Available Not Available prednisone 20 mg tablet TAKE 1 TABLET BY MOUTH DAILY FOR 5 DAYS 09/10 completed Not Available Not Available Not Available clopidogrel 75 mg tablet TAKE 1 TABLET BY MOUTH EVERY DAY 09/10 completed Not Available Not Available Not Available aspirin 81 mg tablet,peggy yed release TAKE 1 TABLET BY MOUTH EVERY DAY active Not Available Not Available No t Available amoxicillin 500 mg tablet Take 1 tablet 3 times a day by oral route for 7 days. 06/23 completed Not Available Not Available Not Available levothyroxi ne 25 mcg tablet TAKE 1 TABLET BY MOUTH EVERY DAY active Not Available Not Available No t Available alprazolam 0.5 mg tablet TAKE 1 TABLET BY MOUTH EVERY DAY 2024 active Not Available Not Available Not Avai lable methocarbam ol 750 mg tablet 09/10 completed Not Available Not Available Not Available omeprazole 20 mg capsule,del ayed release TAKE 1 CAPSULE BY MOUTH DAILY active Not Available Not Available No t Available montelukast 10 mg tablet TAKE 1 TABLET BY MOUTH EVERY DAY active Not Available Not Available No t Available methylpredn isolone 4 mg tablets in a dose pack FOLLOW PACKAGE DIRECTION S 09/10 completed Not Available Not Available Not Available albuterol sulfate HFA 90 mcg/actuati on aerosol inhaler INHALE 2 PUFFS BY MOUTH EVERY 4 HOURS active Not Available Not Available No t Available cefdinir 300 mg capsule TAKE 1 CAPSULE BY MOUTH TWICE DAILY FOR 7 DAYS 09/10 completed Not Available Not Available Not Available fluticasone propionate 50 mcg/actuati on nasal spray,suspe nsion SHAKE LIQUID AND USE 1 SPRAY IN EACH NOSTRIL EVERY DAY active Not Available Not Available No t Available ezetimibe 10 mg tablet TAKE 1 TABLET BY MOUTH EVERY DAY active Not Available Not Available No t Available Senna Plus 8.6 mg-50 mg tablet 09/10 completed Not Available Not Available Not Available tadalafil 5 mg tablet TAKE 1 TABLET BY MOUTH EVERY DAY active Not Available Not Available No t Available Symbicort 160 mcg-4.5 mcg/actuati on HFA aerosol inhaler INHALE 2 PUFFS BY MOUTH TWICE DAILY 06/03 completed Not Available Not Available Not Available FeroSul 325 mg (65 mg iron) tablet TAKE 1 TABLET BY MOUTH EVERY DAY active Not Available Not Available No t Available Jardiance 10 mg tablet TAKE 1 TABLET BY MOUTH EVERY DAY 2024 active Not Available Not Available Not Avai lable Entresto 24 mg-26 mg tablet TAKE 1 TABLET BY MOUTH TWICE DAILY 09/10 completed Not Available Not Available Not Available cyanocobala min (vitamin B-12) 1,000 mcg capsule TAKE ONE CAPSULE BY MOUTH EVERY MORNING active Not Available Not Available No t Available Xarelto 2.5 mg tablet TAKE 1 TABLET BY MOUTH TWICE DAILY active Not Available Not Available No t Available Breztri Aerosphere 160 mcg-9mcg-4. 8mcg/actuat ion HFA aerosol inhaler INHALE 2 PUFFS BY MOUTH TWICE DAILY active Not Available Not Available No t Available BinaxNOW COVID-19 Ag Self Test kit TEST DIRECTED TODAY 09/10 completed Not Available Not Available Not Available Vitals Date Recorded Body height Body mass index (BMI) Body weight Oxygen saturation Oxygen saturation in Arterial blood by Pulse oximetry Heart rate Systolic blood pressure Diastolic blood pressure Provider Name and Address Organization Details Last Updated DateTime 4 180.34 cm 20.4 kg/m2 78106.4 9 g 97 % 97 % 67 /min 116 mm[Hg] 76 mm[Hg] Steven Grant MA [facility] 4 16:10:12 Date Recorded Body height Provider Name an d Address Organization Details Last Updated DateTime 03/24/2024 180.34 cm Marta KRISTAL Farah [facility] 4 16:29:05 Date Recorded Body mass index (BMI) Body weight Oxygen saturation Oxygen saturation in Arterial blood by Pulse oximetry Systolic blood pressure Diastolic blood pressure Provider Name and Address Organization Details Last Updated DateTime 4 20.6 kg/m2 19494.2 3 g 99 % 99 % 110 mm[Hg] 72 mm[Hg] Karlee Murphy [facility] 4 16:45:01 Date Recorded Body height Body mass index (BMI) Body weight Heart rate Oxygen saturation Oxygen saturation in Arterial blood by Pulse oximetry Systolic blood pressure Diastolic blood pressure Provider Name and Address Organization Details Last Updated DateTime 4 180.34 cm 21.2 kg/m2 80915.6 8 g 62 /min 98 % 98 % 124 mm[Hg] 66 mm[Hg] Steven Grant MA [facility] 4 17:03:49 Date Recorded Body height Body mass index (BMI) Body weight Heart rate Oxygen saturation Oxygen saturation in Arterial blood by Pulse oximetry Systolic blood pressure Diastolic blood pressure Provider Name and Address Organization Details Last Updated DateTime 4 180.34 cm 21 kg/m2 85661.0 9 g 58 /min 98 % 98 % 130 mm[Hg] 82 mm[Hg] Karlee Murphy [facility] 4 16:37:51 Date Recorded Body height Body mass index (BMI) Body weight Heart rate Oxygen saturation Oxygen saturation in Arterial blood by Pulse oximetry Systolic blood pressure Diastolic blood pressure Provider Name and Address Organization Details Last Updated DateTime 5 180.34 cm 20.5 kg/m2 15502.7 2 g 76 /min 99 % 99 % 120 mm[Hg] 76 mm[Hg] Karlee Murphy MA [place] - [facility] 16:13:22 Social History Question Answer Notes LastModified by Organizat ion Details LastModified Time Tobacco Smoking Status Never Smoker Denise Campbell MA [place], [place] - [facility] 09/11/2023 16:43:44 Do You Have An Advance Directive? No Information not available 09/11/2023 What Is Your Level Of Alcohol Consumption? None Information not available 09/11/2023 Are You Blind Or Do You Have Difficulty Seeing? No Information not available 09/11/2023 What Is Your Level Of Caffeine Consumption? Occasional Information not available 09/11/2023 In The 14 Days Before Symptom Onset, Have You Had Close Contact With A Laboratory-confir med COVID-19 While That Case Was Ill? No Information not available 03/24/2024 In The 14 Days Before Symptom Onset, Have You Had Close Contact With A Person Who Is Under Investigation For COVID-19 While That Person Was Ill? No Information not available 03/24/2024 Have You Been To An Area Known To Be High Risk For COVID-19? No Information not available 03/24/2024 Are You Currently Employed? Yes Information not available 09/11/2023 Are You Deaf Or Do You Have Serious Difficulty Hearing? No Information not available 09/11/2023 What Type Of Diet Are You Following? 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 08/26/2024 Information not available 08/26/2024 What Is Your Relationship Status? Information not available 09/11/2023 Do You Use Your Seat Belt Or Car Seat Routinely? Yes Information not available 09/11/2023 Do You Have Smoke And Carbon Monoxide Detectors In Your Home? Yes Information not available 09/11/2023 Do You Use Any Illicit Or Recreational Drugs? No Information not available 09/11/2023 Do You Use Sunscreen Routinely? Yes Information not available 09/11/2023 Has Tobacco Cessation Counseling Been Provided? Yes Information not available 09/11/2023 On What Date Was Tobacco Cessation Counseling Provided? 08/26/2024 Information not available 08/26/2024 Do You Or Have You Ever Used Any Other Forms Of Tobacco Or Nicotine? No Information not available 09/11/2023 Sex: Male Functional Status Question Answer Note LastModified by Organization D etails LastModified Time Are you able to care for yourself? Yes Information n ot available 09/11/2023 What is your exercise level? Heavy Information not available 09/11/2023 Mental Status None recorded. Family History Relationship Description Onset Age of this Age Resolved Age Notes LastModified by Organization Details LastModified Time Mother Suspected breast cancer [email or web address] Not available 08/30 16:42:42 Father Heart disease 73 [email or web address] Not available 08/30 16:43:07 Medical History Condition Response Diabetes N Anxiety Disorder N Coronary Artery Disease Y High Blood Pressure N Atrial Fibrillation N Cancer Y Kidney or Bladder Problems N Stroke N Thyroid Problems Y GI Problems N Asthma Y Depression N Blood Clots N Anemia N High Cholesterol Y Hepatitis N Liver Disease N Heart Attack ([place]) Y Heart Failure N Immunizations Vaccine Type Date Status Note Provider Nam e and Address Organization Details Recorded Time COVID-19, mRNA, LNP-S, PF, 100 mcg/0.5mL dose or 50 mcg/0.25mL dose 09/09/2020 completed Ana quick, [place] - [facility] 08/26/2024 15:51:13 COVID-19, mRNA, LNP-S, PF, 100 mcg/0.5mL dose or 50 mcg/0.25mL dose 10/10/2020 matt quick, [place] - [facility] 08/26/2024 15:51:13 COVID-19, mRNA, LNP-S, PF, 100 mcg/0.5mL dose or 50 mcg/0.25mL dose 01/20/2022 matt quick, [place] - [facility] 08/26/2024 15:51:13 COVID-19, mRNA, LNP-S, PF, 100 mcg/0.5mL dose or 50 mcg/0.25mL dose 05/01/2021 completed Ana Caro abdelrahman [place] - [facility] 08/26/2024 15:51:13 COVID-19, mRNA, LNP-S, bivalent, PF, 50 mcg/0.5 mL or 25mcg/0.25 mL dose 05/01/2022 completed Ana quick [place] - [facility] 08/26/2024 15:51:13 Past Encounters Encounter ID Performer Location Encounter Start Date Encounter Closed Date Diagnosis/Indication Diagnosis SNOMED-CT Code Diagnosis ICD10 Code Diagnosis Note [id number] MD Gaetano Amor (Adult Med) [address] [place] [address] 09/11/2023 16:01:45 09/11/2023 17:35:27 Renewal of prescription 898649710 Z76.0 Asthma 530015211 J45.90 9 Coronary atherosclerosis 523685541 I25.10 Hypothyroidism 43584112 E03.9 Gastroesop hageal reflux disease without esophagitis 436915261 K21.9 Cervical spondylosis 387 484425 M47.812 Hyperlipidemia 61675286 E78.5 History of malignant neoplasm of prostate 597202446 Z85.46 [id number] KRISTAL Ng (Adult Med) [address] [place] [address] 11/06/2023 15:27:02 11/06/2023 16:58:17 Fatigue 90081752 R53.83 Anemia 931192091 D64.9 Carcinoma of prostate 25 9000476 C61 [id number] Israel Shah MD [facility] [email or web address] [facility] [place] [address] [place] [address] 03/24/2024 16:07:10 03/24/2024 17:30:24 Gastroesophageal reflux disease without esophagitis 029649607 K21.9 Asthma 707763353 J45.90 9 Cervical spondylosis 387 255991 M47.812 Coronary atherosclerosis 959573349 I25.10 Hyperlipidemia 10290418 E78.5 Hypothyroidism 71514348 E03.9 [id number] MD Gaetano Amor (Adult Med) [address] [place] [address] 06/03/2024 15:54:12 06/03/2024 17:32:13 Pain of ear 724581733 H92.09 [id number] Israel Shah MD [facility] - [place] [address] [place] [address] 06/23/2024 15:58:39 06/23/2024 17:14:30 Body mass index 20-24 - normal 471503637 Z68.21 Asthma 107628276 J45.90 9 Coronary atherosclerosis 760102413 I25.10 Gastroesop hageal reflux disease without esophagitis 408366509 K21.9 Hyperlipidemia 49047538 E78.5 Hypothyroidism 83861085 E03.9 [id number] MD Gaetano Amor (Adult Med) [address] [place] [address] 08/26/2024 15:31:22 08/26/2024 17:29:29 Body mass index 20-24 - normal 073981356 Z68.21 Overweight 941477740 E66 .3 Asthma 507451100 J45.90 9 Gastroesop hageal reflux disease without esophagitis 760686000 K21.9 Hypothyroidism 56912297 E03.9 Coronary atherosclerosis 393545489 I25.10 Essential hypertension 20300365 I10 Health Concerns Section Related Observation LastModified by Organization Detai ls LastModified Time None Recorded Concern Status LastModified by Organization Details LastModified Time None Recorded Advance Directives Directive N: Payers Encounter Date Sequence Insurance Name Policy Number Policy Du Covered Member ID Du Member ID Guarantor Name 11/06/2023 1 [place] [id number] Arslan Pointer [id number] Arslan Pointer 03/24/2024 1 [place] [id number] Arslan Pointer [id number] Arslan Pointer 06/03/2024 1 [place] [id number] Arslan Pointer [id number] Arslan Pointer 06/23/2024 1 [place] [id number] Arslan Pointer [id number] Arslan Pointer 08/26/2024 1 [facility]: (PPO) [id number] Arslan Pointer [id number] Arslan Pointer Notes Date Note Type Note Provider Name and Address Organization Details Recorded Time 11/06/2023 text/html Comes in today f or unscheduled visit because he has been having a lot of fatigue no other specific complaints just tired worried about his mother who has advanced dementia he is worried about his job he is worried about other members of the family to seems like a lot of things are in crisis right now and he is just having a hard time sleep and waking up 1-2 o'clock and cannot get back to sleep as well. No SI no HI Marjorie Glez MA [facility] 11/20/2023 12:01:36 03/24/2024 text/html 1. Asthma actual ly he has been doing fine with his inhalers#2 history of prostate cancer there is not been any new interval developments or complaints3. CAD stent no chest pain or shortness of breath4. Dyslipidemia taking medication tries to follow a low-fat diet5. Hypothyroid no heat or cold intolerance6. Chronic neck pain status post decompression occasionally he will get some spasm from time to time and use a muscle relaxer but overall he has been doing okay7 GERD right now doing fine on his PPI Israel Shah MD Attn: Accounting, [address] [place], [address], [facility] 03/24/2024 21:43:30 06/03/2024 text/html start her off wi th 1-2 days of left ear pain without trauma and now both ears hurt and they hurt and itch no sinus complaints no sore throat Israel Shah MD Attn: Accounting, [address] [place], [address], [facility] 06/03/2024 21:24:57 06/23/2024 text/html hypertension no headache no dizziness. CAD no angina or anginal equivalents. Hypothyroid energy level has been fair has been no cough or wheezing GERD no nausea no vomiting no heartburn Israel Shah MD Attn: Accounting, [address] [place], [address], [facility] - SI 06/23/2024 22:14:15 08/26/2024 text/html has been has bee n doing fine with no inordinate amount of rescue rescue inhaler and use. CAD no angina or anginal equivalents hypertension no dizziness or headache. GERD no nausea no vomiting. He does have little bit of left-sided chest pain after he was doing some lifting with the rash it hurts to put his left arm above his head and that ribcage area no diaphoretic spells no syncope or presyncope does not mimic his pre CABG symptoms Israel Shah MD Attn: Accounting[address] [facility], [place], [address], [facility] - SI 08/26/2024 17:50:43
--- OUTSIDE RECORDS SUMMARY | 2024-10-06 01:27 | XMS_ITS ---
Author Organization [facility] Address [address] [place] [address] Care Team Providers Care [employer] Coordinator Name Role Phone Santi Shah MD Primary Care Provider Active Problems Problem Noted Date Diagnosed Date Moderate malnutrition 11/22/2021 Varicocele 02/24/2020 Overview (02/24/2020): Added automatically from request for surgery [id number] Carcinoma of prostate 04/16/2019 Chronic pain 02/04/2019 Cough 02/04/2019 Dizziness 02/04/2019 Easy bruising 02/04/2019 Hemoptysis 02/04/2019 Neck pain 02/04/2019 Pure hypercholesterolemia 02/04/2019 Rhinitis 02/04/2019 Prostate cancer 02/04/2019 Overview (02/04/2019): Added automatically from request for surgery [id number] High prostate specific antigen (PSA) 12/25/2018 Right bundle branch block 01/03/2018 Heart disease, unspecified 12/25/2016 Anxiety 09/10/2016 Encounter for health-related screening 5 Unspecified asthma, uncomplicated 02/12/2015 Coronary atherosclerosis 10/29/2014 Family history of heart disease 10/29/2014 Hyperlipidemia 10/29/2014 ST elevation (STEMI) 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 Past Treatment and Therapy Plans No past plan information found. Lifetime Dose Tracking * Chemical Lifetime Dose Automatic Entry Manual Entr y DLP 615 mGycm 615 mGycm 0 mGycm
--- OUTSIDE RECORDS SUMMARY | 2024-10-06 01:27 | XMS_ITS | Clinical Summary ---
Author Organization [facility] Address [address] [place] [address] Care Team Providers Care Senior Visual Designer Name Role Phone Santi Shah MD Primary Care Provider Allergies Active Allergy Reactions Criticality Noted Date Comments Lisinopril Dizziness Low 02/12/2015 Medications atorvastatin (LIPITOR) 40 mg tabletIndications :hyperlipidemia Take 40 mg by mouth nightly Active budesonide-formot janis (SYMBICORT) 160-4.5 mcg/actuation inhalerIndication s:Maintenance Therapy for Asthma Inhale 2 puffs 2 (two) times a day Active montelukast (SINGULAIR) 10 mg tabletIndications :Maintenance Therapy for Asthma Take 10 mg by mouth nightly Active aspirin 81 mg enteric coated tabletIndications :Myocardial Reinfarction Prevention,heart stent Take 81 mg by mouth nightly Active ALPRAZolam (XANAX) 0.5 mg tabletIndications :anxiety Take 0.5 mg by mouth nightly as needed Active omeprazole OTC (PriLOSEC OTC) 20 mg EC tabletIndications :Treatment of Non-Bleeding Gastric Disorder Take 20 mg by mouth nightly Active fluticasone propionate (FLONASE) 50 mcg/actuation nasal sprayIndications: Allergic Rhinitis Administer 1 spray into each nostril daily as needed 1 Active empagliflozin (JARDIANCE) 10 mg tabletIndications :heart failure with reduced ejection fraction 10 mg Medrol Dose Pack Scheduling ONLY Take 1 tablet by mouth daily Active albuterol HFA (PROVENTIL HFA,VENTOLIN HFA,PROAIR HFA) 90 mcg/actuation inhaler Inhale 2 puffs every 4 (four) hours as needed 2 Active ezetimibe (ZETIA) 10 mg tablet Take 10 mg by mouth nightly 2 Active tadalafiL (CIALIS) 5 mg tabletIndications :Erectile dysfunction after radical prostatectomy TAKE 1 TABLET BY MOUTH EVERY DAY 30 tablet 11 3 Active carvediloL (COREG) 12.5 mg tablet carvedilol 12.5 mg tablet TAKE 1 TABLET BY MOUTH TWICE DAILY Active sacubitriL-valsar bernal (Entresto) 24-26 mg tablet Entresto 24 mg-26 mg tablet TAKE 1 TABLET BY MOUTH TWICE DAILY Active Xarelto 2.5 mg tablet Take 1 tablet (2.5 mg total) by mouth 2 (two) times a day 4 Active predniSONE (DELTASONE) 20 mg tablet TAKE 1 TABLET BY MOUTH DAILY FOR 5 DAYS 4 Active ferrous sulfate 325 mg (65 mg of elemental iron) tablet Take 1 tablet (325 mg total) by mouth daily 2 Active senna-docusate (PERICOLACE) 8.6-50 mg Take 1 tablet by mouth daily 3 Active azithromycin (ZITHROMAX) 250 mg tablet 4 Active HYDROcodone-aceta minophen (NORCO) 5-325 mg per tablet Take 1-2 tablets by mouth every 6 (six) hours as needed 3 Active cyclobenzaprine (FLEXERIL) 10 mg tablet TAKE 1 TABLET BY MOUTH AT NIGHT NEEDED 4 Active levothyroxine (SYNTHROID) 25 mcg tablet Take 1 tablet (25 mcg total) by mouth daily Active cyanocobalamin, vitamin B-12, 1,000 mcg capsule 4 Active Active Problems Problem Noted Date Diagnosed Date Moderate malnutrition 11/22/2021 Varicocele 02/24/2020 Overview (02/24/2020): Added automatically from request for surgery [id number] Carcinoma of prostate 04/16/2019 Chronic pain 02/04/2019 Cough 02/04/2019 Dizziness 02/04/2019 Easy bruising 02/04/2019 Hemoptysis 02/04/2019 Neck pain 02/04/2019 Pure hypercholesterolemia 02/04/2019 Rhinitis 02/04/2019 Prostate cancer 02/04/2019 Overview (02/04/2019): Added automatically from request for surgery [id number] High prostate specific antigen (PSA) 12/25/2018 Right bundle branch block 01/03/2018 Heart disease, unspecified 12/25/2016 Anxiety 09/10/2016 Encounter for health-related screening 5 Unspecified asthma, uncomplicated 02/12/2015 Coronary atherosclerosis 10/29/2014 Family history of heart disease 10/29/2014 Hyperlipidemia 10/29/2014 ST elevation (STEMI) myocard ial infarction involving other coronary artery of inferior wall 10/29/2014 Surgical History Surgery Date Site/Laterality Comments ELBOW SURGERY 1990s Right CARDIAC STENT PLACEMENT 09/30/2014 - 10/29/2014 X 1 PROSTATECTOMY 03/02/2019 - 03/31/2019 ORIF ANKLE FRACTURE 07/02/2003 - 07/01/2004 Right COLONOSCOPY 07/02/2017 - 07/01/2018 TONSILLECTOMY Medical History Medical History Date Comments Anxiety HLD (hyperlipidemia) Treated wit h statin Asthma CAD (coronary artery disease) s/ p stent 2014 GERD (gastroesophageal reflux disease) History of prostate cancer s/p p rostatectomy 03/2019 Myocardial infarction (HCC) 2014 Prostate cancer (HCC) COPD (chronic obstructive pulmonary disease) (HC C) Family History Medical History Relation Name Comments Heart disease Father Lung disease Father Breast cancer Mother Stroke Mother Anesthesia problems Neg Hx Relation Name Status Comments Father Mother Alive Social History Tobacco Use Types Packs/Day Years Used Date Smoking Tobacco: Never Smokeless Tobacco: Never Alcohol Use Standard Drinks/Week Comments Never 0 (1 standard drink = 0.6 oz pur e alcohol) Social Connection and Isolat ion Panel [NHANES] Answer Date Recorded In a typical week, how many times do you talk on the phone with family, friends, or neighbors? More than three times a week 11/22/2021 How often do you get togethe r with friends or relatives? More than three times a week 11/22/2021 How often do you attend chur iWarda or sikh services? Never 11/22/2021 Do you belong to any clubs o r organizations such as latter day groups, unions, fraternal or athletic groups, or school groups? No 11/22/2021 How often do you attend meet ings of the clubs or organizations you belong to? Never 11/22/2021 Are you , , di vorced, , never , or living with a partner? 11/22/2021 AUDIT-C Answer Date Recorded Q1: How often do you have a drink containing alc ohol? Never 11/21/2021 Average Number of Drinks Not on file 022 Q3: How often do you have si x or more drinks on one occasion? Never 11/21/2021 Overall Financial Resource Strain (CARDIA) Answe r Date Recorded How hard is it for you to pa y for the very basics like food, housing, medical care, and heating? Not hard at all 11/22/2021 Hunger Vital Sign Answer Date Recorded Within the past 12 months, y ou worried that your food would run out before you got the money to buy more. Never true 11/23/19 22 Within the past 12 months, t he food you bought just didn't last and you didn't have money to get more. Never true 11/22/2021 PRAPARE - Transportation Answer Date Re corded In the past 12 months, has l ack of transportation kept you from medical appointments or from getting medications? No 10/31 In the past 12 months, has l ack of transportation kept you from meetings, work, or from getting things needed for daily living? 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 Gender Identity Not on file Sexual Orientation Straight 10/26/2021 12 :36 PM CDT Obstetrics History Last Filed Vital Signs Vital Sign Reading Time Taken Comments Blood Pressure 112/86 02/21/2022 12:43 PM CDT Pulse 81 02/21/2022 12:43 PM CDT Temperature 36.5 C (97.7 F) 01/04/2022 12:51 PM CDT Respiratory Rate 14 02/21/2022 12:43 PM CDT Oxygen Saturation 98% 02/21/2022 12:43 PM CDT Inhaled Oxygen Concentration - - Weight 66.2 kg (146 lb) 02/21/2022 12:43 PM CDT Height 180.3 cm (5' 11 ) 02/21/2022 12:43 PM CDT Body Mass Index 20.36 02/21/2022 12:43 PM CDT Plan of Treatment Health Maintenance Due Date Last Done Comments Colon Cancer Screening-Colonoscopy 1959 Depression Screening 1959 Hepatitis C Screening 1959 DTaP/Tdap/Td Vaccine (1 - Tdap) 1970 Hepatitis B Screening 1977 Pneumococcal vaccine 65+ (1 of 2 - PCV) 1978 Zoster Vaccine (1 of 2) 2009 Fall Risk Assessment 11/26/2022 11/26/2021 Covid-19 Vaccine (2023-2 5 season) 2024 01/20/2022, 05/01/2021, 10/10/2020, Additional history exists Influenza Vaccine (#1) 2024 Abdominal Aortic Aneurysm (A AA) Screen 2024 10/03/2019 Well Visit 65+ 2024 Prostate Cancer Screening-PSA 02/13/2025, 02/28/2022, 02/15/2021, Additional history exists Medical Devices Implanted Type Area [place] P[employer] Device Identifier Shelf Expiration Date Model / Serial / Lot Stent-03/10/2015 Implanted:Qty: 1 on 03/10/2015 Stent Heart Procedures Procedure Name Priority Date/Time Associated Diagnosis Comments PSA DIAGNOSTIC Routine 02/13/2023 12:13 PM CDT Malignant neoplasm of prostate (HCC) CT ABDOMEN PELVIS W CONTRAST Schedule Routine, Read Routine (OP Routine) 10/03/2019 8:01 AM CDT Malignant neoplasm of prostate (HCC) from Last 3 Months or Most Recently Relevant to Health Maintenance Results * PSA diagnostic (02/13/2023 12:13 PM CDT) PSA-Total <0.10 <=5.40 ng/mL [facility] Comment: Interpretive Data AGE SEX REFERENCE INTERVAL 0 minutes-150 years Female None 0 minutes-49 years Male None 50-59 years Male 0-3.90 60-69 years Male 0-5.40 70-79 years Male 0-6.20 80-150 years Male 0-6.20 The Leticia PSA Total assay procedure was used. Results from different manufacturers or methods may not be comparable. Serial testing should be performed using the same method. Current interpretive data last revised 21. Blood 02/13/2023 12:1 3 PM CDT 02/13/2023 12:50 PM CDT us Ken Groves MD LAB BLOOD ORDERABLES Final Resu lt [facility] [id number] [facility]. [place] [address] * CT Abdomen Pelvis W Contrast (10/03/2019 8:01 AM CDT) Anatomical Region Laterality Modality Body N/A Computed Tomogra phy 10/03/2019 8:26 AM CDT Impressions 10/03/2019 8:26 AM CDT No explanation is identified for pain, no abscess is present. Electronically signed by: Judie Alfaro M.D. Narrative 10/03/2019 8:26 AM CDT EXAMINATION: CT of the abdomen and pelvis with contrast HISTORY: The prostatectomy TECHNIQUE: Axial images of the abdomen and pelvis are obtained during uneventful intravenous injection of 100 mL of Optiray 350. COMPARISON: None FINDINGS: The liver appears normal. The gallbladder is unremarkable. The spleen appears normal. The pancreas appears normal. The adrenal glands are unremarkable. The kidneys appear normal. The aorta is normal caliber . There is a 1 cm right groin lymph node on image 183. No pelvic sidewall adenopathy is seen. The bowel and mesentery appear normal. There is no free intraperitoneal fluid. No fluid is seen in the prostatectomy bed. The urinary bladder appears normal. The perineum is unremarkable. No suspicious bone lesions are seen. The lung bases are unremarkable. Procedure Note Judie Alfaro MD - 10/03/2019 EXAMINATION: CT of the abdomen and pelvis with contrast HISTORY: The prostatectomy TECHNIQUE: Axial images of the abdomen and pelvis are obtained during uneventful intravenous injection of 100 mL of Optiray 350. COMPARISON: None FINDINGS: The liver appears normal. The gallbladder is unremarkable. The spleen appears normal. The pancreas appears normal. The adrenal glands are unremarkable. The kidneys appear normal. The aorta is normal caliber . There is a 1 cm right groin lymph node on image 183. No pelvic sidewall adenopathy is seen. The bowel and mesentery appear normal. There is no free intraperitoneal fluid. No fluid is seen in the prostatectomy bed. The urinary bladder appears normal. The perineum is unremarkable. No suspicious bone lesions are seen. The lung bases are unremarkable. IMPRESSION: No explanation is identified for pain, no abscess is present. Electronically signed by: Judie Alfaro M.D. Ken Groves MD IMG CT PROCEDURES Final Result from Last 3 Months or Most Recently Relevant to Health Maintenance Insurance [employer] [facility] mylearnadfriend OR mylearnadfriend OR mylearnadfriend [place] Advance Directives For more information, please contact: [phone] * Full Code (Latest Code Status on File) Date Activated Date Inactivated Comments 11/21/2021 2:43 PM 11/26/2021 11:06 PM * Full Code Date Activated Date Inactivated Comments 03/24/2019 12:36 PM 03/25/2019 6:28 PM Care Teams Senior Visual Designer Relationship Specialty Start Date End Date Santi Shah MD PCP - General 08/13/17
--- OUTSIDE RECORDS SUMMARY | 2024-10-06 01:27 | XMS_ITS | Referral Summary ---
Author Organization [facility] Address [address] [place] [address] Care Team Providers Care Hot Strip Mill Supervisor Name Role Phone Santi Shah MD Primary [...] (02/24/2020): Added automatically from request for surgery [id number] Carcinoma of prostate 04/16/2019 Chronic pain 02/04/2019 Cough 02/04/2019 Dizziness 02/04/2019 Easy bruising 02/04/2019 Hemoptysis 02/04/2019 Neck pain 02/04/2019 Pure hypercholesterolemia 02/04/2019 Rhinitis 02/04/2019 Prostate cancer 02/04/2019 Overview (02/04/2019): Added automatically from request for surgery [id number] High prostate specific antigen (PSA) 12/25/2018 Right bundle branch block 01/03/2018 Heart disease, unspecified 12/25/2016 Anxiety 09/10/2016 Encounter for health-related screening 5 Unspecified asthma, uncomplicated 02/12/2015 Coronary atherosclerosis 10/29/2014 Family history of heart disease 10/29/2014 Hyperlipidemia 10/29/2014 ST elevation (STEMI) myocard ial infarction involving other coronary artery of inferior wall 10/29/2014 Social History Tobacco Use Types Packs/Day Years [...] 11/22/2021 How often do you attend chur ch or sikhism services? 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 [place] [address] * CT Abdomen Pelvis W Contrast (10/03/2019 [...] Most Recently Relevant to Health Maintenance Insurance [facility] [employer]UE [employer] [place] [employer] [place] [facility] Advance Directives For more information, please contact: [phone] * Full Code (Latest Code Status on File) Date Activated Date Inactivated Comments 11/21/2021 2:43 PM 11/26/2021 11:06 PM * Full Code Date Activated Date Inactivated Comments 03/24/2019 12:36 PM 03/25/2019 6:28 PM Care Teams Hot Strip Mill Supervisor Relationship Specialty Start Date End Date Santi Shah MD PCP - General 08/13/17
--- OUTSIDE RECORDS SUMMARY | 2024-10-06 01:28 | XMS_ITS | Data Portability ---
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 Phone ISRAEL SHAH Primary Care Provider ISRAEL SHAH Referring Provider Assessment Encounter Date Assessment Date Assessment LastModified by Organization Details LastModified Time 09/26/2022 09/26/2022 Return to work September 28 push fluids none the 24 hours incidentally states he is holding off on any neck surgery [email or web address] Not available 09/26/2022 21:55:33 10/23/2022 10/23/2022 From my standpoint as long as his pre screen blood work is fine then he can proceed with surgery he will need cardiac clearance separately continue current therapy blood pressure is controlled pulmonary status is stable see me in 3 months [email or web address] Not available 10/23/2022 23:02:36 01/15/2023 01/15/2023 Will continue current therapy follow-up in 4 months Not available 02/04/2023 15:56:44 05/21/2023 05/21/2023 Some Flexeril to use sparingly he just occasionally gets a little bit high neck pain after along day we will continue current therapy for other medical problems last blood work reviewed follow-up in 4 months [email or web address] Not available 05/23/2023 12:26:03 Plan of Treatment Reminders Order Date Submit Date Provider Last Modified By Organization Details Last Modified Time Details Appointments None recorded. Lab None recorded. Referral None recorded. Procedures None recorded. Surgeries None recorded. Imaging None recorded. Medication Orders cyclobenzap rine 10 mg tablet 2022 023 [email or web address] [employer] #[id number] [place], [place], [id number], 17:43:47 cefdinir 300 mg capsule 2022 023 EferioyeniAlexandre de [place] [address] [facility] #[id number] [place], [place], [id number], 14:27:54 Medrol (Eric) 4 mg tablets in a dose pack 2022 [address] [employer] [address] [facility] #[id number] [place], [place], [id number], 14:28:10 Patient TargetsNo targets recorded. Patient Instructions Encounter Date Encounter Id Patient Instructions Last Modified By Organization Details Last Modified Time 09/12/2022 [id number] this treatment will begin with antibiotics and steroids. He will visit his neurosurgeon about a cervical disc disease and we will see him back. We discussed balloon sinus surgery but this is not recommended initially. He is also on Xarelto which would have to be discontinued temporarily [email or web address] Not available 09/12/2022 16:16:05 Reason for Referral None Reported. Results Created Date Observation Date Name Description Value Unit Range Abnormal Flag Note LastModifiedBy Organization Detail LastModifiedTime 09/27/1909/26/2022 CBC/C OMPLE TE BLD COUNT W/DIF F white blood cells 5.3 x10'3 /uL 4.2-10 .8 Not Available [facility] (Lab) [address] [place], [address], 09/26/2022 18:33:05 09/27/19 23 09/26/2022 CBC/C OMPLE TE BLD COUNT W/DIF F red blood cells 4.97 x10'6 /uL 4.10-5 .80 Not Available [facility] (Lab) [address] [place], [address], 09/26/2022 18:33:05 09/27/19 23 09/26/2022 CBC/C OMPLE TE BLD COUNT W/DIF F hemoglobin 15.6 g/dL 13.2-1 7.0 Not Available [facility] (Lab) [address] [place], [address], 09/26/2022 18:33:05 09/27/19 23 09/26/2022 CBC/C OMPLE TE BLD COUNT W/DIF F hematocrit 48.4 % 39.3-5 0.0 Not Available [facility] (Lab) [address] [place], [address], 09/26/2022 18:33:05 09/27/19 23 09/26/2022 CBC/C OMPLE TE BLD COUNT W/DIF F mean red cell volume 97.4 fL 80.0-9 7.0 high Not Available [facility] (Lab) [address] [place], [address], 09/26/2022 18:33:05 09/27/19 23 09/26/2022 CBC/C OMPLE TE BLD COUNT W/DIF F mean red cell hemoglobin 31.4 pg 27.0-3 3.0 Not Available [facility] (Lab) [address] [place], [address], 09/26/2022 18:33:05 09/27/19 23 09/26/2022 CBC/C OMPLE TE BLD COUNT W/DIF F mean RBC HGB concentratio n 32.2 g/dL 31.0-3 6.0 Not Available [facility] (Lab) [address] [place], [address], 09/26/2022 18:33:05 09/27/19 23 09/26/2022 CBC/C OMPLE TE BLD COUNT W/DIF F red cell distribution width 15.0 % 11.8-1 5.5 Not Available [facility] (Lab) [address] [place], [address], 09/26/2022 18:33:05 09/27/19 23 09/26/2022 CBC/C OMPLE TE BLD COUNT W/DIF F platelets 357 x10'3 /uL 150-40 0 Not Available [facility] (Lab) [address] [place], [address], 09/26/2022 18:33:05 09/27/19 23 09/26/2022 CBC/C OMPLE TE BLD COUNT W/DIF F mean platelet volume 9.3 fL 9.0-12 .4 Not Available [facility] (Lab) [address] [place], [address], 09/26/2022 18:33:05 09/27/19 23 09/26/2022 CBC/C OMPLE TE BLD COUNT W/DIF F neutrophils 54.3 % 39.0-7 2.0 Not Available [facility] (Lab) [address] [place], [address], 09/26/2022 18:33:05 09/27/19 23 09/26/2022 CBC/C OMPLE TE BLD COUNT W/DIF F lymphocytes 28.7 % 16.0-4 7.0 Not Available [facility] (Lab) [address] [place], [address], 09/26/2022 18:33:05 09/27/19 23 09/26/2022 CBC/C OMPLE TE BLD COUNT W/DIF F monocytes 11.5 % 5.0-12 .0 Not Available [facility] (Lab) [address] [place], [address], 09/26/2022 18:33:05 09/27/19 23 09/26/2022 CBC/C OMPLE TE BLD COUNT W/DIF F eosinophils 4.0 % 1.0-7. 0 Not Available [facility] (Lab) [address] [place], [address], 09/26/2022 18:33:05 09/27/19 23 09/26/2022 CBC/C OMPLE TE BLD COUNT W/DIF F basophils 1.1 % 0.0-2. 0 Not Available [facility] (Lab) [address] [place], [address], 09/26/2022 18:33:05 09/27/19 23 09/26/2022 CBC/C OMPLE TE BLD COUNT W/DIF F immature granulocytes 0.4 % 0.00-0 .50 Not Available [facility] (Lab) [address] [place], [address], 09/26/2022 18:33:05 09/27/19 23 09/26/2022 CBC/C OMPLE TE BLD COUNT W/DIF F neutrophils, absolute count 2.87 x10'3 /uL 1.5-8. 0 Not Available [facility] (Lab) [address] [place], [address], 09/26/2022 18:33:05 09/27/19 23 09/26/2022 CBC/C OMPLE TE BLD COUNT W/DIF F lymphocytes, absolute count 1.52 x10'3 /uL 1.07-3 .43 Not Available [facility] (Lab) [address] [place], [address], 09/26/2022 18:33:05 09/27/19 23 09/26/2022 CBC/C OMPLE TE BLD COUNT W/DIF F monocytes, absolute count 0.61 x10'3 /uL 0.29-0 .99 Not Available [facility] (Lab) [address] [place], [address], 09/26/2022 18:33:05 09/27/19 23 09/26/2022 CBC/C OMPLE TE BLD COUNT W/DIF F eosinophils, absolute count 0.21 x10'3 /uL 0.02-0 .53 Not Available [facility] (Lab) [address] [place], [address], 09/26/2022 18:33:05 09/27/19 23 09/26/2022 CBC/C OMPLE TE BLD COUNT W/DIF F basophils, absolute count 0.06 x10'3 /uL 0.01-0 .08 Not Available [facility] (Lab) [address] [place], [address], 09/26/2022 18:33:05 09/27/19 23 09/26/2022 CBC/C OMPLE TE BLD COUNT W/DIF F immature granulocytes ,absolute 0.02 x10'3 /uL 0.00-0 .05 Not Available [facility] (Lab) [address] [place], [address], 09/26/2022 18:33:05 09/27/19 23 09/26/2022 CBC/C OMPLE TE BLD COUNT W/DIF F nucleated red blood cells 0.0 % -0 Not Available [facility] (Lab) [address] [place], [address], 09/26/2022 18:33:05 09/27/19 23 09/26/2022 CBC/C OMPLE TE BLD COUNT W/DIF F NRBC# 0.00 x10'3 /uL Not Available [facility] (Lab) [address] [place], [address], 09/26/2022 18:33:05 09/27/19 23 09/26/2022 COMPR EHENS LUIS METAB OLIC PANEL sodium 139 mmol/ L 137-14 5 Not Available [facility] (Lab) [address] [place], [address], 09/26/2022 19:14:54 09/27/19 23 09/26/2022 COMPR EHENS LUIS METAB OLIC PANEL potassium 4.8 mmol/ L 3.5-5. 1 Not Available [facility] (Lab) [address] [place], [address], 09/26/2022 19:14:54 09/27/19 23 09/26/2022 COMPR EHENS LUIS METAB OLIC PANEL chloride 106 mmol/ L 98-107 Not Available [facility] (Lab) [address] [place], [address], 09/26/2022 19:14:54 09/27/19 23 09/26/2022 COMPR EHENS LUIS METAB OLIC PANEL carbon dioxide 24 mmol/ L 22-30 Not Available [facility] (Lab) [address] [facility] [place] [place], [address], 09/26/2022 19:14:54 09/27/19 23 09/26/2022 COMPR EHENS LUIS METAB OLIC PANEL anion gap 13.8 mmol/ L 14-22 low Not Available [facility] (Lab) [address] [place], [address], 09/26/2022 19:14:54 09/27/19 23 09/26/2022 COMPR EHENS LUIS METAB OLIC PANEL glucose 98 mg/dL 70-99 Not Available [facility] (Lab) [address] [place], [address], 09/26/2022 19:14:54 09/27/19 23 09/26/2022 COMPR EHENS LUIS METAB OLIC PANEL BUN 20 mg/dL 8-19 high Not Available [facility] (Lab) [address] [place], [address], 09/26/2022 19:14:54 09/27/19 23 09/26/2022 COMPR EHENS LUIS METAB OLIC PANEL creatinine 0.86 mg/dL 0.66-1 .25 Not Available [facility] (Lab) [address] [place], [address], 09/26/2022 19:14:54 09/27/19 23 09/26/2022 COMPR EHENS LUIS METAB OLIC PANEL GFR >60 Refer ence Range : [place] ge GFR Healt hy Adult : >60 mL/mi n/1.7 3 m2 Chron ic Kidne y Disea se: 15-60 mL/mi n/1.7 3 m2 Kidne y Failu re: <15/m L/min /1.73 m2 www.n iddk. nih.g ov The MDRD study equat ion has not been valid ated in child lena <18 years of age; pregn ant women ; the elder ly >85 years of age; or in some racia l or ethni c subgr oups, such as Hispa nics. Outsi de the valid ated abraham eters , estim ated GFR is less accur ate, requi ring clini viet judgm ent on a case- by-ca se basis . Clini viet inter preta tion for other races and ages must be made by the clini kierra. The MDRD study equat ion has not been valid ated for the evalu ation of serum creat inine relat ed to nutri violeta l statu s or medic ation usage . For perso ns <18 years of age, a pedia tric GFR calcu lator is avail able on the [facility] websi te: https ://maurice marin.mj nguyen/naa garvinal s/kdo qi/gf r_cal culat or Not Available [facility] (Lab) [address] [place], [address], 09/26/2022 19:14:54 09/27/1909/26/2022 COMPR EHENS LUIS METAB OLIC PANEL alkaline phosphatase 88 U/L 38-126 Not Available [facility] (Lab) [address] [place], [address], 09/26/2022 19:14:54 09/27/1909/26/2022 COMPR EHENS LUIS METAB OLIC PANEL alanine aminotransfe rase 36 U/L 0-50 Not Available [facility] (Lab) [address] [place], [address], 09/26/2022 19:14:54 09/27/19 23 09/26/2022 COMPR EHENS LUIS METAB OLIC PANEL aspartate aminotransfe rase 32 U/L 15-46 Not Available [facility] (Lab) [address] [place], [address], 09/26/2022 19:14:54 09/27/19 23 09/26/2022 COMPR EHENS LUIS METAB OLIC PANEL bilirubin, total 0.50 mg/dL 0.20-1 .30 Not Available [facility] (Lab) [address] [place], [address], 09/26/2022 19:14:54 09/27/19 23 09/26/2022 COMPR EHENS LUIS METAB OLIC PANEL calcium 9.4 mg/dL 8.4-10 .2 Not Available [facility] (Lab) [address] [place], [address], 09/26/2022 19:14:54 09/27/19 23 09/26/2022 COMPR EHENS LUIS METAB OLIC PANEL total protein 7.5 g/dL 6.3-8. 2 Not Available [facility] (Lab) [address] [place], [address], 09/26/2022 19:14:54 09/27/19 23 09/26/2022 COMPR EHENS LUIS METAB OLIC PANEL albumin 4.5 g/dL 3.0-4. 4 high Not Available [facility] (Lab) [address] [place], [address], 09/26/2022 19:14:54 09/27/19 23 09/26/2022 COMPR EHENS LUIS METAB OLIC PANEL globulin 3.0 g/dL 2.6-4. 2 Not Available [facility] (Lab) [address] [place], [address], 09/26/2022 19:14:54 09/27/19 23 09/26/2022 COMPR EHENS LUIS METAB OLIC PANEL A/G ratio 1.5 ratio 1.0-2. 0 Not Available [facility] (Lab) [address] [place], [address], 09/26/2022 19:14:54 09/27/19 23 09/26/2022 LIPAS E SERUM lipase 47 U/L 23-300 Not Available [facility] (Lab) [address] [place], [address], 09/26/2022 19:14:56 08/17/19 23 08/16/2022 MRI, cervi viet spine , w/o contr ast [facility] [address] [place] [address] [phone] Patien t Name: KUSUM BAÑUELOS Access ion #: [id number] Sex: M : 1960 MRN: [id number] Locati on: RAD Attend ing Physic ying: TUYET SHAH Orderi ng Physic ying: TUYET SHAH Exam Date: 023 8:45 AM Exam Name: MRI C SPINE WO Admitt ing Diagno sis(es ): RADIOL OGY REPORT - FINAL EXAM: MRI C SPINE WO HISTOR Y: abnorm al findin gs on diagno stic imagin g/head aches 62-yea r-old male with headac hes, neck pain, bilate ral upper extrem ity numbne ss, no known injury . COMPAR DEAN: Cervic al spine MRI dated 2017. TECHNI QUE: Multip lanar multis equenc e noncon trast MR images of the cervic al spine were perfor med. FINDIN GS: No fractu res are identi fied about the cervic al spine. No eviden ce of cerebe llar tonsil lar ectopi a. No abnorm al signal in the cervic al spinal cord. C2-C3: There is mild circum ferent ial broad disc bulge. There is bilate ral Page 1 of 3 [facility] Patien t Name: KUSUM BAÑUELOS Access ion #: [id number] Sex: M : 1960 MRN: [id number] [facility] #: [id number] Exam Date: 023 8:45 AM Exam Name: MRI C SPINE WO Admitt ing Diagno sis(es ): facet hypert rophy. No signif icant spinal canal stenos is. There is mild right and no signif icant left neural forami nal stenos is. C3-C4: There is disc desicc ation and loss of disc height . There are Modic type 2 change s in the C3 inferi or endpla te. There is a circum ferent ial broad disc bulge with endpla te hypert rophy, most promin ent in the right prefor aminal region . There is bilate ral facet and uncina te proces s hypert rophy. The AP dimens ion of the spinal canal measur es 8.8 mm. There is mild mass effect on the anteri or margin of the cervic al spinal cord at this level. There is modera te to severe right and mild left neural forami nal stenos is. C4-C5: There is disc desicc ation and loss of disc height . There is a circum ferent ial broad disc bulge with endpla te hypert rophy, most promin ent in the right forami nal region . There is bilate ral facet and uncina te proces s hypert rophy. The AP dimens ion of the spinal canal measur es 8.2 mm. There is mild mass effect on the anteri or and hospital administrator ior margin s of the cervic al spinal cord at this level. There is severe right and modera te to severe left neural forami nal stenos is. C5-C6: There is 2 mm retrol isthes is C5 on C6. There is disc desicc ation and near comple te loss of disc height . There is a circum ferent ial broad disc bulge with endpla te hypert rophy. There is bilate ral facet and uncina te proces s hypert rophy. The AP dimens ion of the spinal canal measur es 6.1 mm. There is mass effect on the anteri or and hospital administrator ior margin s of the cervic al spinal cord at this level. There is severe bilate ral neural forami nal stenos is. C6-C7: There is disc desicc ation and loss of disc height . There is a Page 2 of 3 [facility] Pati t Name: KUSUM BAÑUELOS Access ion #: [id number] Sex: M : 1960 MRN: [id number] Exam Date: 8:45 AM Exam Name: MRI C SPINE WO Admitt ing Diagno sis(es ): circum ferent ial broad disc bulge with endpla te hypert rophy, most promin ent in the forami nal region s. There is bilate ral facet and uncina te proces s hypert rophy. The AP dimens ion of the spinal canal measur es 7.5 mm. There is mass effect on the anteri or margin of the cervic al spinal cord at this level. There is modera te bilate ral neural forami nal stenos is. IMPRES JEANETTE: 1. No fractu re of the cervic al spine. 2. Advanc ed degene rative disc diseas e and facet arthro geraldine with modera te spinal canal stenos is C5-C6; mild-t o-mode rate spinal canal stenos is C4-C5 and C6-C7; mild spinal canal stenos is at C3-C4. There is mass effect on the cervic al spinal cord at every disc level C3-C7. Recomm end spinal surger y consul tation if not alread y obtain ed. 3. Multil evel signif icant neural forami nal stenos is as detail ed above includ ing C3-C4 on the right; C4-C5 bilate rally; C5-C6 bilate rally; C6-C7 bilate rally. These findin gs may corres pond to bilate ral upper extrem ity radicu lar sympto ms in multip le nerve root distri bution s. Create d and electr onical ly signed by: Alton mata MD Signed Date: 8:13 AM (CT) Dictat ed by: Alton mata MD DD: 8:13 AM (CT) DT: 8:13 AM (CT) Page 3 of 3 [id number] [facility] (Imaging) [address], [place], [address], 08/30/2022 05:18:19 07/03/19 24 07/03/2023 , echoc ardio gram No observ ation record ed. [facility] [address], [place], [address], 07/06/2023 08:41:23 07/13/19 24 07/03/2023 PFT, compl ete No observ ation record ed. [facility] [address], [place], [address], 07/23/2023 17:10:14 08/01/19 24 07/31/2023 PFT, compl ete No observ ation record ed. [email or web address] [facility] [address], [place], [address], 08/02/2023 10:07:10 Result Notes None recorded. Problems Name Problem SNOMED Code Status Onset Date Resolution Date Notes Provider Name and Address Organization Details Recorded Time Renewal of prescript ion Active 2021 Not Available [employer] 4 09:16:53 MRI scan abnormal 673967166 Active 2022 Not Available [facility] 4 09:16:53 Headache 41301480 Active Not Available [employer] 4 09:16:53 Carcinoma of prostate 076003649 Active 2018 robotic prostatect tristen 2019 Not Available [facility] 4 09:16:53 Dyspnea 274224675 Active 2021 Not Available [employer] 4 09:16:53 Pure hyperchol esterolem ia 218193835 Active Not Available [facility] 4 09:16:53 Anemia 294946943 Active 2022 Not Available [facility] 4 09:16:53 Bronchiti s 97043641 Active Not Available [facility] 4 09:16:53 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 4 09:16:53 Upper respirato ry infection 01763797 Active 2021 Not Available [facility] 4 09:16:53 Essential hypertens ion 46259715 Active 2021 Not Available [employer] 4 09:16:53 Hemoptysi s 19028877 Active Not Available [employer] 4 09:16:53 Rhinitis 49849591 Active Not Available [employer] 4 09:16:53 Disorder of nasal sinus 0326425 Active 2022 [facility] Available [facility] 4 09:16:53 Spinal stenosis 13299571 Active 2022 Not Available [employer] 4 09:16:53 Neck pain 94810089 Active Not Available [employer] 4 09:16:53 Chronic pain 31448647 Active Not Available [employer] 4 09:16:54 Chronic pansinusi tis 94686350 Active 2022 Not Available [facility] 4 09:16:54 Viral syndrome 963291218 Active 2022 Not Available [facility] 4 09:16:53 Notes:Some problems listed i n Document: #[id number] could not be added to this patient's chart. Please review this document and add these problems to the patient's chart manually as needed. Problem Notes None recorded. Procedures Surgical History Date Name Laterality Status Provider Name and Address Organization Details Recorded Time 11/22/19 22 procedure on heart completed Not Available [facility] 08/30/2022 05:05:00 11/19/19 21 excision of varicocele completed Not Available [facility] 08/30/2022 05:05:00 01/07/20 19 biopsy of prostate completed Not Available [facility] 08/30/2022 05:05:00 04/30/20 18 Colonoscopy completed Not Available [facility] 08/31/19 05:05:00 Elbow arthroscopy/surge ry completed Not Available [facility] 08/30/2022 05:05:00 Tonsillectomy completed Not Available [facility] 08/30/2022 05:05:00 Ankle Surgery completed Not Available [facility] 08/30/2022 05:05:00 Imaging Results Imaging Date Name Status LastModified by Organization Details LastModified Time 08/16/2022 MRI, cervical spine, w/o contrast completed [id number] [facility] (Imaging) [address] [place], [address], 08/30/2022 05:18:19 07/03/2023 US, echocardiogram completed [facility] [address], [place], [address], 07/06/2023 08:41:23 07/03/2023 PFT, complete completed [facility] [address], [place], [address], 07/23/2023 17:10:14 07/31/2023 PFT, complete completed [email or web address] [address], [place], [address], 08/02/2023 10:07:10 Procedure Notes None recorded. Medical Equipment None Reported. Allergies No known drug allergies Medications Name Sig Start Date Stop Date Status Note LastModified by Organization Details LastModified Time b-12 1000 mcg caps active Not Available Not Available Not Available binaxnow covid-19 ag card home test kit 09/26 completed Not Available Not Available Not Available cyclobenz aprine 10 mg tablet TAKE 1 TABLET BY MOUTH AT NIGHT NEEDED 2023 active Not Available Not Available Not Avai lable amoxicill in 500 mg capsule Take 1 capsule every 8 hours by oral route for 7 days. active Not Available Not Available No t Available atorvasta tin 40 mg tablet TAKE 1 TABLET BY MOUTH EVERY DAY active Not Available Not Available No t Available prednison e 10 mg tablet 4 x 2 days, 3 x 2 days, 2x 2 days, 1 x 2 days 08/27 completed Not Available Not Available Not Available doxycycli ne hyclate 100 mg capsule TAKE 1 CAPSULE BY MOUTH TWICE DAILY FOR 7 DAYS 09/26 completed Not Available Not Available Not Available carvedilo l 12.5 mg tablet TAKE 1 TABLET BY MOUTH TWICE DAILY 01/15 completed stopped by cardiolo gist Not Available Not Available Not Available azithromy devon 250 mg tablet ZPK 08/14 completed Not Available Not Available Not Available tizanidin e 4 mg tablet Take 1 tablet twice a day by oral route. active Not Available Not Available No t Available hydrocodo ne 5 mg-acetam inophen 325 mg tablet TAKE 1 -2 TABLETS BY MOUTH EVERY 6 HOURS NEEDED 01/15 completed Not Available Not Available Not Available prednison e 20 mg tablet Take 2 tablets every day by oral route for 5 days. active Not Available Not Available No t Available bacitraci n 500 unit/gram topical ointment QUOC TOPICALL Y TID PRF WOUND CARE 04/16 completed Not Available Not Available Not Available acetamino phen 300 mg-codein e 30 mg tablet TAKE 1 TABLET BY MOUTH TWICE DAILY NEEDED 07/24 completed Not Available Not Available Not Available clopidogr el 75 mg tablet TAKE 1 TABLET BY MOUTH EVERY DAY 01/15 completed stopped by cardiolo gist Not Available Not Available Not Available ciproflox acin 500 mg tablet Take 1 tablet twice a day by oral route for 10 days. active Not Available Not Available No t Available hydrocodo ne 10 mg-acetam inophen 325 mg tablet TAKE 1 TABLET THREE TIMES A DAY NEEDED 05/14 completed Not Available Not Available Not Available aspirin 81 mg tablet,de layed release TAKE 1 TABLET BY MOUTH EVERY DAY active Not Available Not Available No t Available tramadol 50 mg tablet TK 1 T PO TID PRN P 09/20 completed Not Available Not Available Not Available amitripty line 50 mg tablet 02/07 completed Not Available Not Available Not Available levothyro xine 25 mcg tablet TAKE 1 TABLET BY MOUTH EVERY DAY active Not Available Not Available No t Available alprazola m 0.5 mg tablet TAKE 1 TABLET BY MOUTH EVERY DAY active Not Available Not Available No t Available famotidin e 20 mg tablet TK 1 T PO BID 08/28 completed Not Available Not Available Not Available amitripty line 25 mg tablet 01/24 completed Not Available Not Available Not Available methocarb law 750 mg tablet 01/15 completed Not Available Not Available Not Available DOK 100 mg capsule TK ONE C PO BID PRF CONSTIPA TION active Not Available Not Available No t Available cephalexi n 500 mg capsule TK 1 C PO 1 HOUR PRIOR TO CATHETER REMOVAL FOR INFECTIO N PREVENTI ON 04/16 completed Not Available Not Available Not Available pantopraz ole 40 mg tablet,de layed release TK 1 T PO QD 08/28 completed Not Available Not Available Not Available omeprazol e 20 mg capsule,d elayed release TAKE 1 CAPSULE BY MOUTH EVERY DAY active Not Available Not Available No t Available diclofena c sodium 75 mg tablet,de layed release TAKE 1 TABLET BY MOUTH TWICE DAILY WITH MEALS 02/07 completed Not Available Not Available Not Available monteluka st 10 mg tablet TAKE 1 TABLET BY MOUTH EVERY DAY active Not Available Not Available No t Available acetamino phen 300 mg-codein e 60 mg tablet TK 1 T PO Q 6 H PRN 02/07 completed Not Available Not Available Not Available cefuroxim e axetil 500 mg tablet Take 1 tablet twice a day by oral route for 21 days. active Not Available Not Available No t Available levofloxa devon 500 mg tablet TK 1 T PO Q 24 H 02/07 completed Not Available Not Available Not Available methylpre dnisolone 4 mg tablets in a dose pack take decreasi ng doses as directed 09/26 completed Not Available Not Available Not Available albuterol sulfate HFA 90 mcg/actua tion aerosol inhaler INHALE 2 PUFFS BY MOUTH EVERY 4 TO 6 HOURS NEEDED 2023 active Not Available Not Available Not Avai lable hydrocodo ne 10 mg-acetam inophen 650 mg tablet TAKE 1 TABLET THREE TIMES A DAY NEEDED active Not Available Not Available No t Available oxybutyni n chloride 5 mg tablet TK 1 T PO TID PRN 04/16 completed Not Available Not Available Not Available ondansetr on 4 mg disintegr ating tablet DISSOLVE 1 TABLET ON TONGUE EVERY 6 TO 8 HOURS NEEDED FOR NAUSEA 08/14 completed Not Available Not Available Not Available cefdinir 300 mg capsule Take 1 capsule twice a day by oral route for 7 days. 09/26 completed Not Available Not Available Not Available fluticaso ne propionat e 50 mcg/actua tion nasal spray,yolanda pension SHAKE LIQUID AND USE 2 SPRAYS IN EACH NOSTRIL EVERY DAY active Not Available Not Available No t Available amitripty line 100 mg tablet TK 1 T PO HS active Not Available Not Available No t Available oxycodone 5 mg tablet TK 1 T PO Q 6 H PRN 01/13 completed Not Available Not Available Not Available ezetimibe 10 mg tablet TAKE 1 TABLET BY MOUTH EVERY DAY active Not Available Not Available No t Available cyclobenz aprine 5 mg tablet TAKE 1 OR 2 TABLETS THREE TIMES DAILY NEEDED 09/20 completed Not Available Not Available Not Available Senna Plus 8.6 mg-50 mg tablet 01/15 completed Not Available Not Available Not Available tadalafil 5 mg tablet TAKE 1 TABLET BY MOUTH EVERY DAY active Not Available Not Available No t Available tizanidin e 4 mg capsule Take 1 capsule twice a day by oral route. 09/06 completed Not Available Not Available Not Available ranolazin e ER 500 mg tablet,ex tended release,1 2 hr TAKE 1 TABLET BY MOUTH TWICE DAILY 07/24 completed Not Available Not Available Not Available Symbicort 160 mcg-4.5 mcg/actua tion HFA aerosol inhaler INHALE 2 PUFFS BY MOUTH TWICE DAILY active Not Available Not Available No t Available Symbicort 80 mcg-4.5 mcg/actua tion HFA aerosol inhaler Inhale 2 puffs twice a day by inhalati on route. 09/06 completed Not Available Not Available Not Available FeroSul 325 mg (65 mg iron) tablet TAKE 1 TABLET BY MOUTH EVERY DAY active Not Available Not Available No t Available omeprazol e 20 mg tablet,de layed release TAKE 1 TABLET BY MOUTH EVERY DAY 03/14 completed duplicat e pt is on capsules not tablets Not Available Not Available Not Available oxycodone 10 mg tablet TAKE ONE TABLET 3 TIMES DAILY NEEDED FOR PAIN 09/20 completed Not Available Not Available Not Available Effient 10 mg tablet Take 1 tablet every day by oral route. 04/10 completed Not Available Not Available Not Available Suprep Bowel Prep Kit 17.5 gram-3.13 gram-1.6 gram oral solution MIX AND DRINK UTD 08/14 completed Not Available Not Available Not Available Jardiance 10 mg tablet TAKE 1 TABLET BY MOUTH DAILY active Not Available Not Available No t Available Entresto 24 mg-26 mg tablet TAKE 1 TABLET BY MOUTH TWICE DAILY 10/23 completed Not Available Not Available Not Available naloxone 4 mg/actuat ion nasal spray CALL 911. SPR CONTENTS OF ONE SPRAYER (0.1ML) INTO ONE NOSTRIL. REPEAT IN 2-3 MIN IF SYMPTOMS OF OPIOID EMERGENC Y PERSIST, ALTERNAT E NOSTRILS 01/13 completed Not Available Not Available Not Available cyanocoba gray (vitamin B-12) 1,000 mcg capsule TAKE ONE CAPSULE BY MOUTH ONCE DAILY active Not Available Not Available No t Available Xarelto 2.5 mg tablet TAKE 1 TABLET BY MOUTH TWICE DAILY active Not Available Not Available No t Available ID NOW COVID-19 Test Kit DIRECTED 08/16 completed Not Available Not Available Not Available BinaxNOW COVID-19 Ag Self Test kit TEST DIRECTED TODAY 01/15 completed Not Available Not Available Not Available Vitals Date Recorded Body height Body mass index (BMI) Body weight Body temperature Provider Name and Address Organization Details Last Updated DateTime 09/12/2022 170.18 cm 23.6 kg/m2 02586.45 g 97.8 [degF] Daisha Orlando CMA [place] [facility] 09/12/2022 15:59:08 Date Recorded Body height Body mass index (BMI) Body weight Body temperature Heart rate Systolic blood pressure Diastolic blood pressure Provider Name and Address Organization Details Last Updated DateTime 170.18 cm 23.3 kg/m2 11845.2 6 g 97.8 [degF] 68 /min 140 mm[Hg] 70 mm[Hg] Cynthia escobedo RN [facility] [employer] [facility] 3 14:25:17 Date Recorded Body height Body mass index (BMI) Body weight Body temperature Heart rate Systolic blood pressure Diastolic blood pressure Provider Name and Address Organization Details Last Updated DateTime 3 170.18 cm 23.8 kg/m2 44848.0 4 g 99 [degF] 74 /min 128 mm[Hg] 76 mm[Hg] NAVJOT Peñaloza [facility] [employer] [facility] 3 15:56:01 Date Recorded Body height Body mass index (BMI) Body weight Body temperature Heart rate Systolic blood pressure Diastolic blood pressure Provider Name and Address Organization Details Last Updated DateTime 3 170.18 cm 22.9 kg/m2 65428.4 9 g 98.1 [degF] 70 /min 108 mm[Hg] 68 mm[Hg] NAVJOT Peñaloza [facility] [employer] [facility] 3 15:42:11 Date Recorded Body height Body mass index (BMI) Body weight Body temperature Heart rate Systolic blood pressure Diastolic blood pressure Provider Name and Address Organization Details Last Updated DateTime 3 170.18 cm 23.8 kg/m2 53085.0 4 g 99 [degF] 73 /min 122 mm[Hg] 80 mm[Hg] Danya Johnson Oumar [facility] [employer] [facility] 3 15:30:47 Social History Question Answer Notes LastModified by Organization Details LastModified Time Tobacco Smoking Status Never Smoker JOSEPH Stein [facility] [employer] [facility] 10/23/2022 15:48:54 Do You Have An Advance Directive? No [id number] Information not available 08/30/2022 What Is Your Level Of Alcohol Consumption? None [id number] Information not available 08/30/2022 What Is Your Level Of Caffeine Consumption? Occasional [id number] Information not available 08/30/2022 How Much Tobacco Do You Chew? None [email or web address].030 [id number] Information not available 08/30/2022 In The 14 Days Before Symptom Onset, Have You Had Close Contact With A Laboratory-confi rmed COVID-19 While That Case Was Ill? No [email or web address] Information not available 10/23/2022 In The 14 Days Before Symptom Onset, Have You Had Close Contact With A Person Who Is Under Investigation For COVID-19 While That Person Was Ill? No [email or web address] Information not available 10/23/2022 Are You Currently Employed? Yes [email or web address] Information not available 10/23/2022 What Type Of Diet Are You Following? REGULAR [id number] Information not available 08/30/2022 Which Illicit Or Recreational Drugs Have You Used? None [email or web address] Information not available 10/23/2022 Do You Or Have You Ever Used E-cigarettes Or Vape? Never Used Electronic Cigarettes [email or web address] Information not available 10/23/2022 What Is The Highest Grade Or Level Of School You Have Completed Or The Highest Degree You Have Received? [id number] [email or web address] Information not available 10/23/2022 What Is Your Occupation? [employer] [email or web address] Information not available 10/23/2022 Have There Been Any Changes To Your Family Or Social Situation? No Information not available 10/23/2022 What Is The Fluoride Status Of Your Home? Unknown Information not available 10/23/2022 Are There Any Guns Present In Your Home? No [email or web address] Information not available 10/23/2022 Do You Use Insect Repellent Routinely? No [email or web address] Information not available 10/23/2022 Where Do You Live? SingleLevelHouse [email or web address] Information not available 10/23/2022 Do You Have A Medical Power Of Executive Search Consultant? No [email or web address] Information not available 10/23/2022 What Was The Date Of Your Most Recent Tobacco Screening? 05/21/2023 [email or web address] Information not available 05/21/2023 Do You Have Any Pets? Yes [email or web address] Information not available 10/23/2022 What Is Your Relationship Status? [id number] Information not available 08/30/2022 Do You Use Your Seat Belt Or Car Seat Routinely? Yes [email or web address] Information not available 10/23/2022 Do You Have Smoke And Carbon Monoxide Detectors In Your Home? Yes [email or web address] Information not available 10/23/2022 Are You Passively Exposed To Smoke? No [email or web address] Information not available 10/23/2022 Do You Or Have You Ever Used Smokeless Tobacco? Never Used Smokeless Tobacco [id number] Information not available 08/30/2022 Are There Any Smokers In Your House? No [email or web address] Information not available 10/23/2022 How Much Tobacco Do You Smoke? No [id number] Information not available 08/30/2022 What Types Of Sporting Activities Do You Participate In? None [email or web address] Information not available 10/23/2022 Do You Feel Stressed (tense, Restless, Nervous, Or Anxious, Or Unable To Sleep At Night)? [id number] Information not available 10/23/2022 Do You Use Any Illicit Or Recreational Drugs? No [email or web address] Information not available 10/23/2022 Do You Use Sunscreen Routinely? No [email or web address] Information not available 10/23/2022 Has Tobacco Cessation Counseling Been Provided? Yes Not Needed-n ever Smoked [email or web address] Information not available 10/23/2022 How Many Years Have You Smoked Tobacco? 0 [email or web address] Information not available 10/23/2022 Have You Recently Traveled Abroad? No [email or web address] Information not available 10/23/2022 Do You Have Any Dietary Restrictions? No [email or web address] Information not available 10/23/2022 Do You Or Have You Ever Used Any Other Forms Of Tobacco Or Nicotine? No Information not available 10/23/2022 Sex: Male Functional Status Question Answer Note LastModified by Organizat ion Details LastModified Time What is your exercise level? Occasional [id number] Information not available 08/30/2022 Mental Status None recorded. Family History Relationship Description Onset Age of this Age Resolved Age Notes LastModified by Organization Details LastModified Time Father Heart disease [id number] Not available 08/30/2022 05:05:06 Father Disorder of lung [email or web address] Not available 10/01 15:48:49 Mother Anxiety disorder [id number] Not available 08/30/2022 05:05:06 Mother Hypertensive disorder [id number] Not available 08/30/2022 05:05:06 Mother Hypothyroidi tala [email or web address] Not available 10/01 15:48:49 Medical History Condition Response NERVE DISEASE Y BLINDNESS N RHEUMATIC FEVER N KIDNEY STONES N BLADDER PROBLEMS N MRSA N OTHER # 1 N POLIO N LUNG DISEASE/DISORDER N COPD N RADIATION / CHEMOTHERAPY N Other # 2 N BLOOD DISEASES N EAR OR HEARING PROBLEMS N MUMPS N SHINGLES N DEPRESSION (INCLUDING POST ) N BOWEL PROBLEMS N STROKE/TIA N ULCERS N BENIGN PROSTATIC HYPERPLASIA N MEASLES N MYOCARDIAL INFARCTION N OBESITY N GERD/NAUSEA Y ANEURYSM N URINARY/BLADDER/KIDNEY PROBLEMS N CORONARY ARTERY DISEASE (CAD) Y ADDICTION CONCERNS N Impotence N ENDOMETRIOSIS N USE OF BLOOD THINNERS N SKIN PROBLEMS N GASTROINTESTINAL DISORDER N PERIPHERAL VASCULAR DISEASE N MUSCLE,JOINT OR BONE PROBLEMS N GASTROINTESTINAL BLEEDING N BLOOD CLOTS N ASTHMA N CATARACTS N ERECTILE DYSFUNCTION N VARICOSITIES N GI PROBLEMS N Low Testosterone N INFERTILITY N AIDS/HIV N CHEMOTHERAPY / RADIATION N LIVER DISEASE N MALE HYPOGONADISM N HYPERTENSION N Deficiency N TOURETTE'S N ANXIETY DISORDER Y BLOOD TRANSFUSION N ANEMIA/BLOOD DISORDER N CHRONIC EAR INFECTIONS N BRONCHITIS Y TUBERCULOSIS N GLAUCOMA N FOOT PROBLEM N DIVERTICULITIS N SLEEP APNEA N CHICKENPOX Y INFECTIOUS DISEASE N PROSTATE N HEART ARRHYTHMIA N INSOMNIA N HIGH CHOLESTEROL / HYPERLIPIDEMIA N EYE PROBLEMS N HYPERTHYROIDISM N EDEMA N CHRONIC PAIN SYNDROME Y HYPOTHYROIDISM N CAROTID BLOCKAGE N CONSTIPATION N BACK / NECK PROBLEMS Y HAVE YOU BEEN HOSPITALIZED OR SEEN IN [facility] IN THE PAST YEAR ? N ATHEROSCLEROSIS Y BREAST PROBLEMS N DIALYSIS N ECZEMA N OSTEOPOROSIS N ARTHRITIS N APPENDICITIS N DIABETES, TYPE N BAD TEETH N ENT N HEARTBURN / REFLUX N AUTISM SPECTRUM DISORDER (ASD) N HEPATITIS / LIVER DISEASE N GOUT N SLEEP DISORDER N ALZHEIMER'S DISEASE N Brain Problems N DEMENTIA N HERPES N SEIZURES/EPILEPSY N HEADACHES/MIGRAINES Y VASCULAR DISEASE N PACEMAKER N Blood Disorder N DIZZINESS N HEART DISEASE/HEART PROBLEMS Y KIDNEY DISEASE N MULTIPLE SCLEROSIS N CANCER: SPECIFY Y CARDIAC ARRHYTHMIA N ATRIAL FIBRILLATION N Gall Stones N PULMONARY EMBOLISM N AUTOIMMUNE DISEASE N Immunizations Vaccine Type Date Status Note Provider Nam e and Address Organization Details Recorded Time COVID-19, mRNA, LNP-S, PF, 100 mcg/0.5mL dose or 50 mcg/0.25mL dose 01/20/2022 completed Not Available [facility] 4 09:16:56 COVID-19, mRNA, LNP-S, PF, 100 mcg/0.5mL dose or 50 mcg/0.25mL dose 05/01/2021 completed Not Available [facility] 4 09:16:56 COVID-19, mRNA, LNP-S, PF, 100 mcg/0.5mL dose or 50 mcg/0.25mL dose 10/10/2020 completed Not Available [facility] 4 09:16:56 COVID-19, mRNA, LNP-S, PF, 100 mcg/0.5mL dose or 50 mcg/0.25mL dose 09/09/2020 completed Not Available [facility] 4 09:16:56 Past Encounters Encounter ID Performer Location Encounter Start Date Encounter Closed Date Diagnosis/Indication Diagnosis SNOMED-CT Code Diagnosis ICD10 Code Diagnosis Note [id number] [facility] Jose Raulvi lle [address] [place] [address] y , [place] [address] 12/07/2020 00:00:00 12/08/2020 07:54:56 [id number] [facility] Minh knapp [address] [place] [address] [place] [address] 03/31/2021 00:00:00 04/22/2021 21:58:06 [id number] [facility] Minh knapp [address] [place] [address] [place] [address] 04/12/2021 00:00:00 04/12/2021 23:19:56 [id number] [facility] Minh llesperanza [address] [place] [address] [place] [address] 08/16/2021 00:00:00 08/27/2021 20:27:59 [id number] [facility] [address] , [address] [address] 12/12/2021 00:00:00 01/07/2022 14:21:18 [id number] [facility] [address] , [address] [address] 01/13/2022 00:00:00 01/28/2022 21:16:20 [id number] [facility] Minh knapp [address] [facility] [place] [address] 03/14/2022 00:00:00 03/14/2022 20:56:35 [id number] [facility] [address] [address] 04/04/2022 00:00:00 04/05/2022 11:39:29 [id number] [facility] [address] [facility] [address] [address] 04/19/2022 00:00:00 05/30/2022 22:21:01 [id number] [facility] [address] [facility] [address] [address] 07/24/2022 00:00:00 07/31/2022 20:57:46 [id number] Camilo Stevens MD [facility] [place] [address] [place] [address] 09/12/2022 15:55:20 09/12/2022 16:20:40 Chronic pansinusitis 04087591 J32.4 [id number] Israel Shah MD [facility] [place]h [place] [address] [facility] y , [place] [address] 09/26/2022 14:05:23 09/26/2022 14:48:24 Viral syndrome 214845431 B34.9 [id number] Israel Shah MD [facility] [address] [address] 10/23/2022 15:47:35 10/23/2022 16:32:59 Essential hypertension 48657741 I10 Reactive a irways dysfunction syndrome 151456038 J68.3 Coronary atherosclerosis 468964461 I25.10 [id number] Israel Shah MD [facility] [address] [address] 01/15/2023 15:23:41 01/15/2023 16:08:02 Essential hypertension 59288964 I10 Anxiety 70357814 F41.9 Carcinoma of prostate 25 1153214 C61 Coronary atherosclerosis 249039242 I25.10 Reactive a irways dysfunction syndrome 885544749 J68.3 [id number] Israel Shah MD [facility] [address] [place], [facility] 15 [place] [address] 05/21/2023 15:15:08 05/21/2023 16:41:33 Neck pain 96029184 M54.2 Anxiety 24346978 F41.9 Coronary atherosclerosis 524777250 I25.10 Essential hypertension 76028264 I10 Pure hypercholesterolemia 431531733 E78.00 Health Concerns Section Related Observation LastModified by Organization Detai ls LastModified Time None Recorded Concern Status LastModified by Organization Details LastModified Time None Recorded Advance Directives Directive N: Payers Encounter Date Sequence Insurance Name Policy Number Policy Du Covered Member ID Du Member ID Guarantor Name 09/12/2022 1 [place] [id number] Kusum R Pointer [id number] [employer] 09/26/2022 1 [place] [id number] Kusum R Pointer [id number] [employer] Pointer 10/23/2022 1 [place] [id number] Kusum R Pointer [id number] [employer] Pointer 01/15/2023 1 [place] [id number] Kusum R Pointer [id number] [employer] Pointer 05/21/2023 1 [place] [id number] Kusum R Pointer [id number] [employer] Notes Date Note Type Note Provider Name and Address Organization Details Recorded Time 09/12/2022 text/html this patient had an MRI scan for cervical disc disease and cervical disc disease was found to be severe. However incidentally the left frontal sinus was severely opacified there was less severe disease in the remaining paranasal sinuses. The patient does report headaches and has not yet been on any antibiotics. Camilo Stevens MD [address], [place], [address], [employer] 09/12/2022 16:16:50 09/26/2022 text/html few days of naus ea vomiting and diarrhea that is getting better Israel Shah MD [address], [place], [address], [employer] 09/26/2022 21:55:55 10/23/2022 text/html Contemplating ne ck surgery now today has no pain CAD no chest pain reactive airway disease is been doing fine hypertension blood pressure 128/76 had has some neck pain shooting into his arms saw surgeon who wanted him to have surgery Israel Shah MD [address], [place], [address], [employer] 10/23/2022 23:02:55 01/15/2023 text/html Had his neck surgery seems to be doing fine. Hypertension no headache no dizziness. Anxiety stable. Carcinoma prostate asymptomatic currently CAD no chest pain reactive airway disease stable Israel Shah MD [address], [place], [address], [employer] 02/04/2023 15:57:02 05/21/2023 text/html Neck pains had surgery occasionally feels tight would like to have a muscle relaxer to use sparingly. Anxiety he has not had any decompensation. CAD no chest pain hypertension no dizziness dyslipidemia does try to follow low-fat diet Israel Shah MD [address], [place], [address], [employer] 05/23/2023 12:26:19
--- OUTSIDE RECORDS SUMMARY | 2024-10-06 01:28 | XMS_ITS | Encounter Summary ---
Author Organization [facility] Address [address] [place] [address] Phone Care Team Providers Care Translator And Interpreter Name Role Phone Santi Shah MD Primary Care Provider Encounter Details Date Type Department Care Team (Late st Contact Info) Description 08/14/2019 Telephone [facility] Surgery [address] [place] [address] Antonia Davis MA Social History Tobacco Use Types Packs/Day Years Used Date Smoking Tobacco: Never Smokeless Tobacco: Never Alcohol Use Standard Drinks/Week Comments Never 0 (1 standard drink = 0.6 oz pur e alcohol) AUDIT-C Answer Date Recorded Frequency of Alcohol Consumption Never 02/04/2019 Average Number of Drinks Not on file 019 Frequency of Binge Drinking Not on file 11/2018 Sex and Gender Information Value Date Recorded Sex Assigned at Not on file Legal Sex Male 3:59 PM [employer] Gender Identity Not on file Sexual Orientation Straight 10/26/2021 12 :36 PM CDT documented as of this encounter Plan of Treatment Not on file documented as of this encounter Visit Diagnoses Not on filedocumented in this encounter Care Teams Translator And Interpreter Relationship Specialty Start Date End Date Santi Shah MD PCP - General 08/13/17 documented as of this encounter
--- NOTE | 2024-10-06 06:46 | WPDHPUPDATE1 ---
History and Physical Update Update Date/Time: 10/06/24 06:46 History and Physical has been reviewed, including an updated exam of the patient. There are NO changes in the patient's condition. Risks, benefits, and alternatives have been discussed and questions answered. Patient agrees to proceed with procedure. Patient has a very large tear. He is well aware that if the tear can't be fixed, he may end up with a reverse shoulder.
[2024-10-06] MEDS: LACTATED RINGERS 1,000 ML 30 ML IV CONT ×2 (07:45→10:10)
--- NOTE | 2024-10-06 08:04 | P.PNAN_ITS ---
Anes - Initial Pre Proc Eval Procedure: Operation Date: 10/06/24 09:00 Proposed Procedures p Right Shoulder Arthroscopy, Open Rotator Cuff Repair and Distal Clavicle Excision - Mustapha Grant MD Date/Time: 10/06/24 08:04 Surgeon: Mustapha Grant MD Pre Op Diagnosis: right rotator cuff tear, AC arthritis Patient Data Age: 64 Gender: M Height: 1.8 m Weight: 68 kg Allergies Allergy/AdvReac Type Severity Reaction Status Date / Time No Known Allergies Allergy Verified 10/06/24 08:04 Home Medications ?Medication ?Instructions ?Recorded ?Confirmed ?Type albuterol sulfate 90 mcg/actuation 1 puff inhalation Q4H PRN 07/22/24 09/22/24 History aerosol inhaler (Ventolin HFA) shortness of breath or wheezing alprazolam 0.5 mg tablet 0.5 mg PO DAILY 07/22/24 09/22/24 History aspirin 81 mg tablet,delayed 81 mg PO DAILY 07/22/24 09/22/24 History release atorvastatin 40 mg tablet (Lipitor) 40 mg PO DAILY 07/22/24 09/22/24 History budesonide 160 mcg-glycopyr 9 2 inh inhalation BID 07/22/24 09/22/24 History mcg-formot 4.8 mcg/actuation HFA inhaler (Breztri Aerosphere) empagliflozin 10 mg tablet 10 mg PO DAILY 07/22/24 09/22/24 History (Jardiance) ezetimibe 10 mg tablet 10 mg PO DAILY 07/22/24 09/22/24 History ferrous sulfate 325 mg (65 mg 325 mg PO DAILY 07/22/24 09/22/24 History iron) tablet levothyroxine 25 mcg capsule 25 mcg PO DAILY 07/22/24 09/22/24 History mecobalamin (vitamin B12) 1,000 1,000 mcg PO DAILY 07/22/24 09/22/24 History mcg lozenges montelukast 10 mg tablet 10 mg PO DAILY 07/22/24 09/22/24 History (Singulair) omeprazole 20 mg capsule,delayed 20 mg PO DAILY 07/22/24 09/22/24 History release rivaroxaban 2.5 mg tablet (Xarelto) 2.5 mg PO BID 07/22/24 09/22/24 History fluticasone propionate 50 1 spray intranasal DAILY 09/18/24 09/22/24 History mcg/actuation nasal spray,suspension (Allergy Relief (fluticasone)) Laboratory Tests 10/06/24 07:54 Hgb Pending Hct Pending Patient hx anesthesia problems: none Family hx anesthesia problems: none Results Review: All pre-operative results and documents have been reviewed as part of the pre- operative evaluation. PMFSH Surgical History Surgical History History of neck surgery History of elbow surgery rt History of prostate surgery prostrate removed History of ankle surgery rt Family History Family History Mother Cerebrovascular accident Social History Social History Smoking status: Never smoker Alcohol intake: never Substance use: never Do You Feel Safe in your Home?: Yes Lack of Transportation: No Lack of Food: Never True Current Housing: I Have Housing Concerned About Future Housing: No Difficulty Paying Gas/Electric Bills: No Difficulty Paying for Meds: No Currently Unemployed: No Education: Trade/Vocational Certificate Difficulty w/ Childcare or Family Care: No Anes - Eval Final PreProcedure Day of Procedure 10/06/24 08:04 Patient weight: normal and thin Lungs: normal air movement Airway: Mallampati scale class III and special considerations (Small chips noted to upper incisors. ) Neurological: alert and oriented Last oral intake: >/= 8 hours ASA classification: III Emergent: no Anesthetic plan: proceed Anesthesia type and monitoring: general ETT and standard monitoring Results Review: All pre-operative results and documents have been reviewed as part of the pre- operative evaluation. CAD, s/p PTCA 2014 w CARTER, ,then CABG x 4 2021 w excellent results. Pt walks several flights of stairs at work, no cp or sob. Hyperlipidemia, hypothyroidism. ISB discussed w pt and two children and all questions answered, they agree to proceed. Informed Consent: The patient's anesthetic plan and its attendant risks and benefits were discussed with the patient/family/POA. Questions were solicited and answers provided to the satisfaction of the patient/family/POA.
[2024-10-06] MEDS: KETOROLAC 15 MG/ML VIAL (*BKC) IV PUSH (08:06)
[2024-10-06] MEDS: ACETAMINOPHEN 500 MG TABLET 1000 MG PO (08:06)
--- NOTE | 2024-10-06 08:33 | WPDANESPNB ---
Anes - Peripheral Nerve Block Date/Time: 10/06/24 08:33 I have discussed with the patient/family/POA the placement of a peripheral nerve block for post-operative pain management, including associated risks, benefits, complications, and side effects. Alternative methods of post-operative analgesia were detailed. Questions were solicited and answers provided to the satisfaction of the patient/family/POA. Time-Out: A pre-procedural Time-Out was completed immediately before starting the procedure and confirmed: Patient Identification, Site, Procedure, Patient Position and the Availability of Requisite Equipment. Clinical Indications: Acute post-operative pain management requested by the operative surgeon. Nerve Block Insertion Note Anes-nerve block: interscalene right Skin prep: chlorhexidine Needle: 22 gauge, stimulating, insulated echogenic needle. Needle length: 80 mm Technique: ultrasound Injectate: other (Bupiv 0.5% 15 mls. ) Observations: tolerated well Complications: none Procedure start time:: 820 Procedure end time:: 827
[2024-10-06 08:34] LABS: Hematocrit 50.3 % (42.0-52.0); Hemoglobin 16.6 g/dL (14.0-18.0)
[2024-10-06] MEDS: LIDO 1%/EPINEPHRINE 1:100,000 20 ML VIAL INFILTRATE (09:34)
[2024-10-06] MEDS: ceFAZolin 2 GM/D5W 50 ML 2 GM/50 ML BAG IVPB (09:44)
--- NOTE | 2024-10-06 09:51 | W.PM.PROC2 ---
Procedure Note - Detailed Date of Procedure 10/06/24 Pre-op Diagnosis Right rotator cuff tear AC arthritis Post-op Diagnosis Same Procedure Performed Rotator cuff repair Distal clavicle excision Surgeon Mustapha Grant MD Anesthesia General Findings Pain and Tearing of the rotator Cuff Description of Procedure Patient brought to the operative room #8. A general anesthetic was administered. The patient was placed in the beach chair position with the RIGHT shoulder exposed.? After sterile prep and drape, standard posterior and lateral portals were used for arthroscopy. The joint itself looked reasonably good the biceps tendon was intact.? There was fraying and tearing of the rotator cuff area in the supraspinatus tear region. The tear was nickel to quarter sized. This was gently debrided.? The subacromial space had an intense bursa, this was debrided with a shaver and acromioplasty performed arthroscopically.? The subacromial space was quite tight initially. I then proceeded to open the shoulder. A longitudinal incision made from the AC joint distalward over the shoulder.? Dissection carried down to the fascia. The fascia overlying the acromioclavicular joint was split. The AC joint found and a distal clavicle excision performed removing 3 to 4 millimeters of bone.? The edges beveled.? The deltoid was then split from the tip of the acromion. The remainder of the bursa was debrided.? The rotator cuff was torn in the supraspinatus and infraspinatous interval. It was a very large tear. This was debrided and repaired to bone using #2 Ethibond suture.? At this point the deltoid was repaired to itself,the acromion and the trapezius with #2 Ethibond. The skin was closed with 2-0 Vicryl and ocrky.? Sterile dressing applied patient tolerated well left the operating room satisfactory condition. Estimated Blood Loss 50 Drains No Packing No Pathology None sent Complications No immediate complications Condition Stable Disposition PACU [facility] Billing Surgery - Charge Forward: Surgery Billing ([id number] RTC Repair [id number] DCE)
[2024-10-06] MEDS: oxyCODONE HCL (*CRX) 5 MG TAB IR PO (11:16)
== END 2024-10-06 11:47 | disposition home or self-care (01) ==
PROVIDERS: Anesthesiology; PCP Internal Medicine; Visit Provider Orthopaedic Surgery
PROC: (CPT 29805; principal; 2024-10-06 09:00)
DX: M75.111 Incomplete rotator cuff tear or rupture of right shoulder, not specified as traumatic (principal); G89.18 Other acute postprocedural pain; M19.011 Primary osteoarthritis, right shoulder; E78.5 Hyperlipidemia, unspecified; E03.9 Hypothyroidism, unspecified; I25.10 Atherosclerotic heart disease of native coronary artery without angina pectoris; Z79.51 Long term (current) use of inhaled steroids; Z79.82 Long term (current) use of aspirin; Z79.84 Long term (current) use of oral hypoglycemic drugs; Z79.01 Long term (current) use of anticoagulants; Z98.890 Other specified postprocedural states; Z98.1 Arthrodesis status; Z95.1 Presence of aortocoronary bypass graft; Z82.49 Family history of ischemic heart disease and other diseases of the circulatory system
CPT/HCPCS: 64415; 23412; 23120; 36415; 85014; 85018; A9270; J0171; J0690; J1100; J1885; J2003; J2004; J2250; J2405; J2704; J3010; J7120